=== PATIENT | male | born 1945 | race Caucasian/White ===

== ENCOUNTER → 2017-10-25 09:23 | Outpatient (CLI) | payer OTHER, SELFPAY ==
--- NOTE | 2017-10-25 | DI.ECHO.S_ITS ---
[facility] +---------+ : : [address] : [place] : : : : [id number] : : : : Phone: [phone]+ Echocardiogram Report + + :Name: DEMETRIO JARQUIN Study Date: 10/25/2017 Height: 69 in : :[facility] Weight: 163 lb : : Gender: Male BSA: 1.9 m2 : :: 1945 Age: 71 yrs BP: 138/76 mmHg: :Reason For Study: CAD : :Ordering Physician: Pieter : :Aaliyah Nuñez Performed By: Estelita Troy : :Referring: Cheryl Burgess : + + Interpretation Summary 1) Normal left ventricular thickness, size, wall motion, and systolic function (EF 60-65%). 2) Normal right ventricular size and function. 3) There is mild to moderate mitral regurgitation. 4) The aortic valve is moderately calcified but no significant stenosis or regurgitation noted. 5) Moderately dilated abdominal aorta at 3.8cm. 6) No prior Echo available for comparison. Procedure: A two-dimensional transthoracic echocardiogram with color flow and Doppler was performed. The study quality was technically adequate. There is no prior echocardiogram noted for this patient. The patient was in normal sinus rhythm during the exam. Left Ventricle: The left ventricle is normal in size, wall thickness, and systolic function without any focal wall motion abnormalities. The ejection fraction is estimated to be 60-65%. Grade I diastolic dysfunction. Right Ventricle: The right ventricle grossly appears normal in size with probable normal systolic function. Atria: The left atrium is mildly dilated. Right atrial size is normal. The interatrial septum is intact with no evidence for an atrial septal defect. Mitral Valve: The mitral valve is grossly normal. There is mild to moderate mitral regurgitation. Aortic Valve: The aortic valve is moderately calcified. The calculated aortic valve area is 2.7 cm2. The aortic valve area is 1.8 centimeters squared by planimetry. The peak aortic velocity is 1.3 m/sec. The aortic valve mean gradient is 3 mmHg. Severity ratio is 0.59. No aortic regurgitation is present. Tricuspid Valve: The tricuspid valve leaflets are thin and pliable. There is mild tricuspid regurgitation. The right ventricular systolic pressure is estimated at 27 mmHg assuming a right atrial pressure of 3 mm Hg. Pulmonic Valve: The pulmonic valve is not well visualized. Great Vessels: The aortic root is normal size. The ascending aorta is at the upper limits of normal in size. Moderately dilated abdominal aorta. The IVC is of normal diameter and collapses greater than 50% with a sniff. This suggests a low right atrial pressure of 3 mm Hg. Pericardium/ Pleura There is no pericardial effusion. There is no pleural effusion. MMode/2D Measurements & Calculations LVIDd: 4.2 cm LVOT diam: 2.5 cm LVIDs: 2.7 cm Ao root diam: 3.6 cm FS: 35.9 % Aortic Jxn: 2.8 cm IVSd: 0.93 cm asc Aorta Diam: 3.8 cm LVPWd: 0.98 cm Ao Arch Diam (Prox Trans): 2.7 cm LV carbajal. diameter/BSA (cm/m^2): 2.2 LV sys. diameter/BSA (cm/m^2): 1.4 LA A2 area: 19.1 cm2 RA long axis: 4.6 cm LA A4 area: 17.6 cm2 RA area: 17.8 cm2 LA length (vol): 4.8 cm RA vol: 58.2 ml LA vol: 59.9 ml RA : 30.7 ml/m2 LA vol index: 31.6 ml/m2 IVC diam: 1.3 cm RVDd major: 5.6 cm RVD1 (basal): 3.8 cm RVD2 (mid): 3.2 cm ALISON (plan): 1.8 cm2 Doppler Measurements & Calculations Ao V2 max: 130.9 cm/sec LVOT Max Blair: 74.2 cm/sec Ao V2 mean: 83.0 cm/sec LV V1 max P.2 mmHg Ao max P.9 mmHg LV V1 VTI: 17.2 cm Ao mean P.3 mmHg ALISON(I,D): 2.8 cm2 Ao V2 VTI: 29.4 cm ALISON(V,D): 2.7 cm2 sev ratio: 0.59 ALISON indexed to BSA (cm^2/m^2): 1.5 MV E max blair: 75.8 cm/sec TR max blair: 243.6 cm/sec MV A max blair: 66.6 cm/sec TR max P.7 mmHg MV E/A: 1.1 PA V2 max: 59.9 cm/sec Med Peak E' Blair: 6.2 cm/sec PA V2 mean: 38.0 cm/sec E/E' med: 12.2 PA mean P.71 mmHg Lat Peak E' Blair: 7.3 cm/sec PA Accel Time: 0.13 sec E/E' lat: 10.4 E/e' average: 11.3 MV dec time: 0.18 sec MV P1/2t: 52.9 msec MR ERO: 0.21 cm2 MV P1/2t max blair: 75.5 cm/sec MR flow rate: 107.8 cm3/sec MVA(P12t): 4.2 cm2 MR PISA radius: 0.67 cm Reading Physician:05:05 PM
== END ==
PROVIDERS: Family Provider Internal Medicine; PCP Internal Medicine; Visit Provider Internal Medicine Cardiovascular Disease
DX: I25.10 Atherosclerotic heart disease of native coronary artery without angina pectoris (principal)
CPT/HCPCS: 93306

== ENCOUNTER → 2017-11-18 11:53 | Outpatient (CLI) | payer OTHER, SELFPAY ==
--- NOTE | 2017-11-18 | DI.RAD.S_ITS ---
PROCEDURE: XR CHEST 2V INDICATIONS: COUGH TECHNIQUE: 2 views of the chest were acquired. COMPARISON: [facility], , CHEST 2 VIEW, 08/28/2017, 18:16. FINDINGS: Surgical changes and devices: None. Lungs and pleura: No pleural effusions or pneumothorax. Lungs are clear. Mediastinum: Mediastinal contours are normal. Heart size is normal. Bones and chest wall: No suspicious bony abnormalities. Soft tissues appear unremarkable. IMPRESSION: No acute cardiopulmonary abnormality. Dictated by: Karthikeyan Dominguez M.D. on 11/18/2017 at 12:27 Approved by: Karthikeyan Dominguez M.D. on 11/18/2017 at 12:28
== END ==
PROVIDERS: Family Provider Internal Medicine; PCP Internal Medicine; Visit Provider Internal Medicine
DX: R05 Cough (principal)
CPT/HCPCS: 71046

== ENCOUNTER → 2018-02-05 10:38 | Outpatient (CLI) | payer OTHER, SELFPAY ==
--- NOTE | 2018-02-05 | DI.US.S_ITS ---
PROCEDURE: US CAROTID DOPPLER BI INDICATIONS: BILATERAL CAROTID BRUITS, AAA WITHOUT RUPTURE TECHNIQUE: Color and pulse Doppler interrogation was performed of both carotid systems, with image documentation and velocity measurements. COMPARISON: None. FINDINGS: Stenosis calculations are based on SRU (Society of Radiologists in Ultrasound) criteria. Right side: Brachial blood pressure: Not obtained Common carotid artery peak systolic velocity: 70 cm/sec. Internal carotid artery peak systolic velocity: 93 cm/sec. Internal carotid artery end diastolic velocity: 15 cm/sec. External carotid artery peak systolic velocity: 197 cm/sec. ICA/CCA peak systolic ratio: 1.3. Goodson scale imaging description: Moderate to severe scattered plaque Percent internal carotid artery stenosis: Less than 50%. Vertebral artery: Flow direction is antegrade. Left side: Brachial blood pressure: Not obtained Common carotid artery peak systolic velocity: 66 cm/sec. Internal carotid artery peak systolic velocity: 132 cm/sec. Internal carotid artery end diastolic velocity: 37 cm/sec. External carotid artery peak systolic velocity: 94 cm/sec. ICA/CCA peak systolic ratio: 2.0. Goodson scale imaging description: Moderate to severe scattered plaque Percent internal carotid artery stenosis: 50-69% stenosis. Vertebral artery: Flow direction is antegrade. IMPRESSION: 1. 50-69% left internal carotid artery stenosis. 2. Less than 50% right internal carotid artery stenosis. Dictated by: Hood Allred [facility] Interpreted: Nanette Mckeon MD on 02/05/2018 at 12:02 Approved by: Nanette Mckeon MD, PhD on 02/05/2018 at 12:08
--- NOTE | 2018-02-05 | DI.US.S_ITS ---
PROCEDURE: US RETRO PERITONEAL LIMITED INDICATIONS: BILATERAL CAROTID BRUITS, AAA WITHOUT RUPTURE TECHNIQUE: Real time scanning was performed of the aorta and iliac arteries, with image documentation. COMPARISON: [facility], , L-SPINE 2-3 VIEWS, 06/14/2014, 10:59. FINDINGS: Aorta: Proximal aortic diameter measures 2.4 cm. Mid-aorta measures 1.8 cm. Distal aortic diameter is 3.3 x 4.3 cm. Iliac arteries: Right common iliac artery measures 1.4 cm. Left common iliac artery measures 1.6 cm. IMPRESSION: 3.3 cm distal abdominal aortic aneurysm. 3 year followup ultrasound recommended. Dictated by: Hood Allred [facility] Interpreted: Nanette Mckeon MD on 02/05/2018 at 11:52 Approved by: Nanette Mckeon MD, PhD on 02/05/2018 at 12:04
== END ==
PROVIDERS: Family Provider Internal Medicine; PCP Internal Medicine; Visit Provider Internal Medicine Cardiovascular Disease
DX: I71.4 Abdominal aortic aneurysm, without rupture (principal); I65.23 Occlusion and stenosis of bilateral carotid arteries; R09.89 Other specified symptoms and signs involving the circulatory and respiratory systems
CPT/HCPCS: 76775; 93880

== ENCOUNTER 2018-05-02 12:16 | Observation (INO) | payer OTHER, SELFPAY ==
[2018-05-02] VITALS (12 sets, daily range): BP systolic 126–183; BP diastolic 65–89; PULSE 70–79; RESP 13–21; TEMP 36.7–36.8; O2SAT 96–100; BMI 24.4
--- NOTE | 2018-05-02 12:27 | ED.CHESTPAIN ---
HPI - Chest Pain <LETITIA Beasley - Last Filed: 05/02/18 21:18> General Chief Complaint: Chest Pain Stated Complaint: THINKS HE IS HAVING ANOTHER HEART ATTACK Time Seen by Provider: 05/02/18 12:20 Source: patient Mode of arrival: ambulatory Limitations: no limitations History of Present Illness HPI narrative: 72-year-old male with history of prior MD and a pulmonary embolus that is a former smoker here for complaint of pain into his left shoulder area over the past couple of days. He also reports having some increased tiredness during the same timeframe. He has had some nausea no vomiting. He does report that he has had few episodes of diaphoresis. He denies any shortness of breath. No chest pain at this time. He does report that he has had some pain into the left shoulder that is aggravated with movement at times. He denies any trauma to the area. He does state that last week he moved a generator and that may be the cause of his left shoulder pain. He is concerned that he is having another heart attack as he had a heart attack and August. Any states that he had pain in his left shoulder than as well. MD complaint: other Related Data Home Medications Medication Instructions Recorded Confirmed aspirin 81 mg PO DAILY 05/02/18 05/02/18 atorvastatin 80 mg PO QPM 05/02/18 05/02/18 clopidogrel 75 mg PO DAILY 05/02/18 05/02/18 ezetimibe 10 mg PO QPM 05/02/18 05/02/18 losartan 12.5 mg PO QPM 05/02/18 05/02/18 metoprolol tartrate 25 mg PO BID 05/02/18 05/02/18 nitroglycerin 0.4 mg SUBLINGUAL Q5-15M PRN 05/02/18 05/02/18 Previous Rx's Medication Instructions Recorded famotidine [Pepcid AC] 20 mg PO DAILY #60 tab 05/03/18 sucralfate [Carafate] 1 gram PO QACHS #120 tab 05/03/18 Allergies Allergy/AdvReac Type Severity Reaction Status Date / Time No Known Drug Allergies Allergy Verified 05/02/18 16:12 Review of Systems <LETITIA Beasley - Last Filed: 05/02/18 21:18> Constitutional Denies chills, Denies fever(s), Denies lethargy and Denies weakness Eyes Denies change in vision, Denies eye discharge, Denies irritation and Denies loss of vision ENT Ears, Nose, Mouth, and Throat: Denies change in voice, Denies neck pain and Denies sore throat Cardiovascular Denies chest pain, Denies irregular heart rhythm, Denies lightheadedness, Denies palpitations, Denies dyspnea, Denies dyspnea on exertion and Denies orthopnea Respiratory Denies cough, Denies dyspnea, Denies dyspnea on exertion and Denies wheezing Gastrointestinal Gastrointestinal: Denies abdominal pain, Denies change in bowel habits, Denies diarrhea, Denies nausea and Denies vomiting Genitourinary Denies hematuria, Denies flank pain, Denies urinary incontinence and Denies urinary urgency Musculoskeletal Denies neck pain Comments: Left shoulder pain Integumentary/Breasts Denies pruritus, Denies erythema, Denies rash and Denies wounds Neurologic Denies confusion, Denies loss of vision and Denies weakness Psychiatric Denies anxiety, Denies confusion, Denies depression, Denies homicidal ideation and Denies suicidal ideation Endocrine Denies palpitations Hematologic/Lymphatic Denies easy bruising Allergic/Immunologic Denies wheezing Exam <LETITIA Beasley - Last Filed: 05/02/18 21:18> Initial Vital Signs Initial Vital Signs: Vital Signs Temperature 98.0 F 05/02/18 12:24 Pulse Rate 77 05/02/18 12:24 Respiratory Rate 17 05/02/18 12:24 Blood Pressure 183/89 H 05/02/18 12:24 Pulse Oximetry 98 05/02/18 12:24 Const General: cooperative and well developed Nutritional Appearance: well nourished Orientation: alert, awake, oriented x3 and not confused [facility] Mouth: oral mucosae normal and moist mucous membranes Eyes Conjunctivae: conjunctivae normal Sclera: sclerae normal Pupils: PERRL EOM: EOM intact bilaterally Chest Chest: normal inspection of the chest Resp Effort & Inspection: normal respiratory effort, able to speak in complete sentences, no respiratory distress and no use of accessory muscles Auscultation: clear to auscultation bilaterally, no rales, no rhonchi and no wheezes Cardio Rate: regular rate Rhythm: regular rhythm Heart Sounds: no click, no gallops, no murmurs and no rubs Pulses: normal peripheral pulses Skin General: no rashes or lesions noted, No jaundice and No petechiae Neuro General: alert, oriented x3, gait normal and no focal motor deficits Speech: speech normal <Linda Sam DO - Last Filed: 05/05/18 07:22> Initial Vital Signs Initial Vital Signs: Vital Signs Temperature 98.0 F 05/02/18 12:24 Pulse Rate 77 05/02/18 12:24 Respiratory Rate 17 05/02/18 12:24 Blood Pressure 183/89 H 05/02/18 12:24 Pulse Oximetry 98 05/02/18 12:24 Scores <LETITIA Beasley - Last Filed: 05/02/18 21:18> HEART Score Heart Score history: Slightly Suspicious Heart Score EKG: Normal Heart Score Age: > or = 65 years old Heart Score risk factors: > 3 risk factors or hx of atherosclerotic disease Heart Score troponin: < or = to normal limit Heart Score Total: 4 PERC Score Age greater than or equal to 50 years: Yes Heart rate greater than or equal to 100 bpm: No Room Air O2 Sat less than 95%: No Unilateral leg swelling: No Recent trauma or surgery: No Hemoptysis: No Prior PE or DVT: Yes Hormone Use: No Total PERC Score: 2 Course <LETITIA Beasley - Last Filed: 05/02/18 21:18> Orders Ordered: Discontinued Medications Acetaminophen (Tylenol) 650 mg PO Q6HR PRN PRN Reason: As Needed for Fever/Mild Pain Aspirin (Aspirin Ec) 81 mg PO DAILY [facility] Last Admin: 05/03/18 09:07 Dose: 81 mg Atorvastatin Calcium (Lipitor) 80 mg PO QPM [facility] Last Admin: 05/02/18 17:48 Dose: 80 mg Calcium Carbonate (Tums) 1,000 mg PO Q4HR PRN PRN Reason: Dyspepsia Clopidogrel Bisulfate (Plavix) 75 mg PO DAILY [facility] Last Admin: 05/03/18 09:07 Dose: 75 mg Ezetimibe (Zetia) 10 mg PO QPM [facility] Last Admin: 05/02/18 17:48 Dose: 10 mg Enoxaparin Sodium (Lovenox) 40 mg SUBCUT DAILY [facility] Last Admin: 05/03/18 09:10 Dose: Not Given Losartan Potassium (Cozaar) 12.5 mg PO QPM [facility] Last Admin: 05/02/18 17:48 Dose: 12.5 mg Metoprolol Tartrate (Lopressor) 25 mg PO BID [facility] Last Admin: 05/03/18 09:07 Dose: 25 mg Admin: 05/02/18 20:22 Dose: 25 mg Morphine Sulfate (Morphine) 2 mg IV Q4HR PRN PRN Reason: Pain, Moderate (4-6) Nitroglycerin (Nitrostat) 0.3 mg SL [id number] PRN PRN Reason: CHEST PAIN Ondansetron HCl (Zofran) 4 mg IV Q8HR PRN PRN Reason: Nausea And Vomiting Pantoprazole Sodium (Protonix) 20 mg PO 0600 [facility] Last Admin: 05/03/18 05:23 Dose: 20 mg Polyethylene Glycol (Miralax) 34 gm PO NOW ONE Stop: 05/02/18 18:39 Last Admin: 05/02/18 20:22 Dose: 34 gm Polyethylene Glycol (Miralax) 17 gm PO DAILY [facility] Last Admin: 05/03/18 09:07 Dose: 17 gm Sennosides (Senna) 17.2 mg PO BEDTIME [facility] Last Admin: 05/02/18 20:22 Dose: 17.2 mg Vital Signs - 8 hr 05/02/18 13:48 05/02/18 14:00 05/02/18 14:57 Temperature Pulse Rate 71 73 70 Respiratory Rate 18 21 15 Blood Pressure Blood Pressure [Left Arm] 160/78 H 135/70 136/71 Pulse Oximetry 97 99 97 05/02/18 15:02 05/02/18 15:43 05/02/18 17:06 Temperature 98.1 F Pulse Rate 79 74 75 Respiratory Rate 13 20 18 Blood Pressure 150/89 H Blood Pressure [Left Arm] 128/65 126/70 Pulse Oximetry 100 100 98 05/02/18 17:29 05/02/18 17:48 Temperature Pulse Rate 75 Respiratory Rate Blood Pressure 150/89 H Blood Pressure [Left Arm] Pulse Oximetry 98 <Linda Sam DO - Last Filed: 05/05/18 07:22> Orders Ordered: Discontinued Medications Acetaminophen (Tylenol) 650 mg PO Q6HR PRN PRN Reason: As Needed for Fever/Mild Pain Aspirin (Aspirin Ec) 81 mg PO DAILY [facility] Last Admin: 05/03/18 09:07 Dose: 81 mg Atorvastatin Calcium (Lipitor) 80 mg PO QPM [facility] Last Admin: 05/02/18 17:48 Dose: 80 mg Calcium Carbonate (Tums) 1,000 mg PO Q4HR PRN PRN Reason: Dyspepsia Clopidogrel Bisulfate (Plavix) 75 mg PO DAILY [facility] Last Admin: 05/03/18 09:07 Dose: 75 mg Ezetimibe (Zetia) 10 mg PO QPM [facility] Last Admin: 05/02/18 17:48 Dose: 10 mg Enoxaparin Sodium (Lovenox) 40 mg SUBCUT DAILY [facility] Last Admin: 05/03/18 09:10 Dose: Not Given Losartan Potassium (Cozaar) 12.5 mg PO QPM [facility] Last Admin: 05/02/18 17:48 Dose: 12.5 mg Metoprolol Tartrate (Lopressor) 25 mg PO BID [facility] Last Admin: 05/03/18 09:07 Dose: 25 mg Admin: 05/02/18 20:22 Dose: 25 mg Morphine Sulfate (Morphine) 2 mg IV Q4HR PRN PRN Reason: Pain, Moderate (4-6) Nitroglycerin (Nitrostat) 0.3 mg SL [id number] PRN PRN Reason: CHEST PAIN Ondansetron HCl (Zofran) 4 mg IV Q8HR PRN PRN Reason: Nausea And Vomiting Pantoprazole Sodium (Protonix) 20 mg PO 0600 [facility] Last Admin: 05/03/18 05:23 Dose: 20 mg Polyethylene Glycol (Miralax) 34 gm PO NOW ONE Stop: 05/02/18 18:39 Last Admin: 05/02/18 20:22 Dose: 34 gm Polyethylene Glycol (Miralax) 17 gm PO DAILY [facility] Last Admin: 05/03/18 09:07 Dose: 17 gm Sennosides (Senna) 17.2 mg PO BEDTIME [facility] Last Admin: 05/02/18 20:22 Dose: 17.2 mg Vital Signs - 8 hr 05/02/18 13:48 05/02/18 14:00 05/02/18 14:57 Temperature Pulse Rate 71 73 70 Respiratory Rate 18 21 15 Blood Pressure Blood Pressure [Left Arm] 160/78 H 135/70 136/71 Pulse Oximetry 97 99 97 05/02/18 15:02 05/02/18 15:43 12/28/18 17:06 Temperature 98.1 F Pulse Rate 79 74 75 Respiratory Rate 13 20 18 Blood Pressure 150/89 H Blood Pressure [Left Arm] 128/65 126/70 Pulse Oximetry 100 100 98 05/02/18 17:29 05/02/18 17:48 Temperature Pulse Rate 75 Respiratory Rate Blood Pressure 150/89 H Blood Pressure [Left Arm] Pulse Oximetry 98 MDM - Chest Pain <LETITIA Beasley - Last Filed: 05/02/18 21:18> Lab Data Result diagrams: 05/02/18 12:25 05/03/18 05:52 Lab Results 05/02/18 05/02/18 05/02/18 Range/Units 12:25 12:25 12:25 WBC 7.6 (4.5-11.0) X10^3/uL RBC 4.37 L (4.5-5.9) X10^6/uL Hgb 14.7 (13.5-17.5) g/dL Hct 42.2 (41-53) % MCV 96.7 (80-100) fL MCH 33.6 (26-34) PG MCHC 34.7 (30-36) % RDW 12.4 (11.6-14.8) % Plt Count 204 (150-400) X10^3/uL Neut % (Auto) 59.4 (50-75) % Lymph % (Auto) 28.6 (25-40) % [place] % (Auto) 8.1 (3-14) % Eos % (Auto) 3.0 (2-4) % Baso % (Auto) 0.9 (0-2) % Neut # (Auto) 4500 (7561-9853) /uL D-Dimer 678 H (<230) ng/mL Sodium 141 (137-145) mmol/L Potassium 4.9 (3.4-5.1) mmol/L Chloride 101 (98-107) mmol/L Carbon Dioxide 27 (22-32) mmol/L BUN 13 (9-20) mg/dL Creatinine 0.80 (0.66-1.25) mg/dL Estimated GFR > 60.0 (>60) mL/min BUN/Creatinine Ratio 16.3 (6-22) Glucose 107 (80-110) mg/dL Calcium 9.6 (8.4-10.2) mg/dL Total Bilirubin 0.7 (0.2-1.3) mg/dL AST 54 (17-59) IU/L ALT 40 (21-72) IU/L Alkaline Phosphatase 61 (38-126) U/L Total Creatine Kinase 518 H (55-170) U/L CK-MB (CK-2) 15.30 H (<2.37) ng/mL CK-MB (CK-2) Rel Index 3.0 (1.5-5.0) % Troponin I < 0.012 (0.01-0.034) ng/mL Total Protein 7.7 (6.3-8.2) g/dL Albumin 4.6 (3.5-5.0) g/dL Globulin 3.1 (1.7-4.1) g/dL Albumin/Globulin Ratio 1.5 (1.0-2.8) Triglycerides 141 (35-150) mg/dL Cholesterol 191 (140-199) mg/dL LDL Cholesterol, Calc 91 (<100) mg/dL HDL Cholesterol 72 H (40-60) mg/dL Lipase 150 (23-300) U/L 05/03/18 Range/Units 05:52 WBC (4.5-11.0) X10^3/uL RBC (4.5-5.9) X10^6/uL Hgb (13.5-17.5) g/dL Hct (41-53) % MCV (80-100) fL MCH (26-34) PG MCHC (30-36) % RDW (11.6-14.8) % Plt Count (150-400) X10^3/uL Neut % (Auto) (50-75) % Lymph % (Auto) (25-40) % Carolina % (Auto) (3-14) % Eos % (Auto) (2-4) % Baso % (Auto) (0-2) % Neut # (Auto) (8124-9415) /uL D-Dimer (<230) ng/mL Sodium 138 (137-145) mmol/L Potassium 3.9 (3.4-5.1) mmol/L Chloride 102 (98-107) mmol/L Carbon Dioxide 26 (22-32) mmol/L BUN 13 (9-20) mg/dL Creatinine 0.80 (0.66-1.25) mg/dL Estimated GFR > 60.0 (>60) mL/min BUN/Creatinine Ratio 16.3 (6-22) Glucose 104 (80-110) mg/dL Calcium 9.0 (8.4-10.2) mg/dL Total Bilirubin (0.2-1.3) mg/dL AST (17-59) IU/L ALT (21-72) IU/L Alkaline Phosphatase (38-126) U/L Total Creatine Kinase 490 H (55-170) U/L CK-MB (CK-2) 10.50 H (<2.37) ng/mL CK-MB (CK-2) Rel Index 2.1 (1.5-5.0) % Troponin I < 0.012 (0.01-0.034) ng/mL Total Protein (6.3-8.2) g/dL Albumin (3.5-5.0) g/dL Globulin (1.7-4.1) g/dL Albumin/Globulin Ratio (1.0-2.8) Triglycerides (35-150) mg/dL Cholesterol (140-199) mg/dL LDL Cholesterol, Calc (<100) mg/dL HDL Cholesterol (40-60) mg/dL Lipase (23-300) U/L Imaging Data Chest x-ray: Radiologist's impression: [address] [address] XRay Report Signed Patient: Elan Borges MR#: [id number] : 1945 Acct:[id number] Age/Sex: 72 / M Date of Service: 05/02/18 Loc: ED Accession Number: [id number] Procedure: XR chest 1V Ordering Provider: Conor Ayala PROCEDURE: XR CHEST 1V INDICATIONS: chest pain TECHNIQUE: One view of the chest was acquired. COMPARISON: [facility], CR, XR CHEST 2V, 11/18/2017, 11:59. FINDINGS: Surgical changes and devices: None. Lungs and pleura: No pleural effusions or pneumothorax. Lungs are clear. Mediastinum: Mediastinal contours appear normal. Heart size is normal. Bones and chest wall: No suspicious bony lesions. Overlying soft tissues appear unremarkable. IMPRESSION: No acute pulmonary process. Dictated by: Jennfifer Cardoso M.D. on 05/02/2018 at 13:04 Approved by: Jenniffer Cardoso M.D. on 05/02/2018 at 13:06 ECG Data Interpretation: EKG shows normal sinus rhythm with no ST elevation or depression. No ectopy. Ventricular rate is 76. Pr interval 160. QRS duration of 96. QTC 389. MDM Narrative Medical decision making narrative: EKG today shows normal sinus rhythm and no ST elevation or depression. No ectopy. Cardiac enzymes show elevated CK and CK-MB with normal CK-MB ratio and normal troponin. Chest x-ray was obtained. D-dimer was obtained and was 678 which is close to age adjusted D-dimer however patient has history of prior PE so elected to have a PE study conducted and was negative for pulmonary embolus. Discussed case with Cardiology Dr. Velazquez who recommended admission for observation and serial enzymes discussed case with Dr. Gomez hospitalist who accepted patient. Patient is admitted to inpatient services <Linda Sam, - Last Filed: 05/05/18 07:22> Lab Data Lab Results 05/02/18 05/02/18 05/02/18 Range/Units 12:25 12:25 12:25 WBC 7.6 (4.5-11.0) X10^3/uL RBC 4.37 L (4.5-5.9) X10^6/uL Hgb 14.7 (13.5-17.5) g/dL Hct 42.2 (41-53) % MCV 96.7 (80-100) fL MCH 33.6 (26-34) PG MCHC 34.7 (30-36) % RDW 12.4 (11.6-14.8) % Plt Count 204 (150-400) X10^3/uL Neut % (Auto) 59.4 (50-75) % Lymph % (Auto) 28.6 (25-40) % Carolina % (Auto) 8.1 (3-14) % Eos % (Auto) 3.0 (2-4) % Baso % (Auto) 0.9 (0-2) % Neut # (Auto) 4500 (9451-2856) /uL D-Dimer 678 H (<230) ng/mL Sodium 141 (137-145) mmol/L Potassium 4.9 (3.4-5.1) mmol/L Chloride 101 (98-107) mmol/L Carbon Dioxide 27 (22-32) mmol/L BUN 13 (9-20) mg/dL Creatinine 0.80 (0.66-1.25) mg/dL Estimated GFR > 60.0 (>60) mL/min BUN/Creatinine Ratio 16.3 (6-22) Glucose 107 (80-110) mg/dL Calcium 9.6 (8.4-10.2) mg/dL Total Bilirubin 0.7 (0.2-1.3) mg/dL AST 54 (17-59) IU/L ALT 40 (21-72) IU/L Alkaline Phosphatase 61 (38-126) U/L Total Creatine Kinase 518 H (55-170) U/L CK-MB (CK-2) 15.30 H (<2.37) ng/mL CK-MB (CK-2) Rel Index 3.0 (1.5-5.0) % Troponin I < 0.012 (0.01-0.034) ng/mL Total Protein 7.7 (6.3-8.2) g/dL Albumin 4.6 (3.5-5.0) g/dL Globulin 3.1 (1.7-4.1) g/dL Albumin/Globulin Ratio 1.5 (1.0-2.8) Triglycerides 141 (35-150) mg/dL Cholesterol 191 (140-199) mg/dL LDL Cholesterol, Calc 91 (<100) mg/dL HDL Cholesterol 72 H (40-60) mg/dL Lipase 150 (23-300) U/L 05/03/18 Range/Units 05:52 WBC (4.5-11.0) X10^3/uL RBC (4.5-5.9) X10^6/uL Hgb (13.5-17.5) g/dL Hct (41-53) % MCV (80-100) fL MCH (26-34) PG MCHC (30-36) % RDW (11.6-14.8) % Plt Count (150-400) X10^3/uL Neut % (Auto) (50-75) % Lymph % (Auto) (25-40) % Carolina % (Auto) (3-14) % Eos % (Auto) (2-4) % Baso % (Auto) (0-2) % Neut # (Auto) (3179-2375) /uL D-Dimer (<230) ng/mL Sodium 138 (137-145) mmol/L Potassium 3.9 (3.4-5.1) mmol/L Chloride 102 (98-107) mmol/L Carbon Dioxide 26 (22-32) mmol/L BUN 13 (9-20) mg/dL Creatinine 0.80 (0.66-1.25) mg/dL Estimated GFR > 60.0 (>60) mL/min BUN/Creatinine Ratio 16.3 (6-22) Glucose 104 (80-110) mg/dL Calcium 9.0 (8.4-10.2) mg/dL Total Bilirubin (0.2-1.3) mg/dL AST (17-59) IU/L ALT (21-72) IU/L Alkaline Phosphatase (38-126) U/L Total Creatine Kinase 490 H (55-170) U/L CK-MB (CK-2) 10.50 H (<2.37) ng/mL CK-MB (CK-2) Rel Index 2.1 (1.5-5.0) % Troponin I < 0.012 (0.01-0.034) ng/mL Total Protein (6.3-8.2) g/dL Albumin (3.5-5.0) g/dL Globulin (1.7-4.1) g/dL Albumin/Globulin Ratio (1.0-2.8) Triglycerides (35-150) mg/dL Cholesterol (140-199) mg/dL LDL Cholesterol, Calc (<100) mg/dL HDL Cholesterol (40-60) mg/dL Lipase (23-300) U/L Discharge Plan Departure Patient Disposition: Admitted As Inpatient Clinical Impression: Acute pain of left shoulder Discharge Date/Time: 05/02/18 16:44 Interventions: ED Discharge Assessment Last Done: 05/02/18 16:38 Admit Date/Time: 05/02/18 16:09 Admit Provider: Yennifer Mckeon <Linda Sam DO - Last Filed: 05/05/18 07:22> Cosign ED Attending Cosdominickature Attestation: I was immediately available in the department for consultation, case was discussed, labs reviewed and HPI. Plan for observation after consultation with cardiology. This documentation has been reviewed and I agree with assessment and plan. Supervised by Linda Sam, DO
[2018-05-02 12:42] LABS: Add Manual Diff / Slide Review NO; Basophils Percent Auto 0.9 % (0-2); Hematocrit 42.2 % (41-53); Hemoglobin 14.7 g/dL (13.5-17.5); Lymphocytes Percent Auto 28.6 % (25-40); Mean Corpuscular HGB Conc 34.7 % (30-36); Mean Corpuscular Hemoglobin 33.6 PG (26-34); Mean Corpuscular Volume 96.7 fL (80-100); Monocytes Percent Auto 8.1 % (3-14); Neutrophils Absolute Auto 4500 /uL (1500-7000); Neutrophils Percent Auto 59.4 % (50-75); Platelet Count 204 X10^3/uL (150-400); Red Blood Cell Count 4.37 X10^6/uL (4.5-5.9); Red Cell Distribution Width 12.4 % (11.6-14.8); White Blood Cell Count 7.6 X10^3/uL (4.5-11.0)
[2018-05-02 12:45] LABS: D Dimer 678 ng/mL (<230)
[2018-05-02 12:47] LABS: BUN Creatinine Ratio 16.3 (6-22); Blood Urea Nitrogen 13 mg/dL (9-20); Carbon Dioxide 27 mmol/L (22-32); Chloride 101 mmol/L (98-107); Creatine Kinase 518 U/L (55-170); Potassium 4.9 mmol/L (3.4-5.1); Sodium 141 mmol/L (137-145)
[2018-05-02 12:48] LABS: Alanine Aminotransferase 40 IU/L (21-72); Albumin 4.6 g/dL (3.5-5.0); Albumin Globulin Ratio 1.5 (1.0-2.8); Alkaline Phosphatase 61 U/L (38-126); Aspartate Aminotransferase 54 IU/L (17-59); Bilirubin Total 0.7 mg/dL (0.2-1.3); Calcium 9.6 mg/dL (8.4-10.2); Estimated Glomerular Filt Rate > 60.0 mL/min (>60); Globulin 3.1 g/dL (1.7-4.1); Glucose 107 mg/dL (80-110); Lipase 150 U/L (23-300); Total Protein 7.7 g/dL (6.3-8.2)
[2018-05-02 12:59] LABS: Troponin I < 0.012 ng/mL (0.01-0.034)
[2018-05-02 13:03] LABS: HEMOLYSIS < 15 (0-50)
--- NOTE | 2018-05-02 13:09 | DI.CT.S_ITS ---
PROCEDURE: CT ANGIO CHEST PE PROTOCOL INDICATIONS: Chest pain hx of pe in past TECHNIQUE: After the administration of intravenous contrast, 2 mm thick sections acquired from the pulmonary apices to the posterior costophrenic angles. 3-dimensional maximum intensity projection (MIP) coronal and sagittal reformats were then acquired through the thorax. For radiation dose reduction, the following was used: automated exposure control, adjustment of mA and/or kV according to patient size. COMPARISON: [facility], CT, PE STUDY (CTA CHEST), 12/06/2014, 15:13. [facility], CT, PE STUDY (CTA CHEST), 08/28/2017, 18:57. FINDINGS: Image quality: Excellent. Pulmonary arteries: Pulmonary arteries are normal in size, and demonstrate no new intraluminal filling defects to suggest interval development of central pulmonary embolism. And earlier CT scan of the chest in December 2014 and identified a significant obstructive pulmonary embolus within the right medial bibasilar segmental pulmonary artery, in addition to elsewhere. Recanalization of that embolus appears to have developed with only a slight residual in the same area, as a thin band of intraluminal radiodensity on 08/28/17 CT pulmonary angiogram. This same thin weblike residual structure can again be seen unchanged over time, best identified centered on series 4 image 82. This extends inferiorly for 2 slices, as was previously the case, and no new pulmonary embolus has developed. Lungs and pleura: Lungs are clear considering reduced inspiratory volume. No pleural effusions or pneumothorax. Central and peripheral airways are patent. Mediastinum: Heart size is normal, without pericardial effusion. No mediastinal or hilar adenopathy. Thoracic aorta is normal in caliber and enhancement. Esophagus is normal in caliber, without hiatal hernia. Bones and chest wall: No suspicious bony lesions. Ribs and thoracic spine appear intact throughout. Thyroid gland appears normal where well visualized. No axillary or supraclavicular adenopathy. Abdomen: Visualized upper abdominal solid organs appear normal in the early arterial phase of enhancement. IMPRESSION: No new pulmonary embolus found. There is stable appearance of a thin weblike band of nonocclusive radiodensity within the medial bibasilar posterior segmental pulmonary artery at the right lung base, identical to the appearance from 08/28/17. This represents an area of prior large occlusive pulmonary embolus seen in December of 2014. Note is again made of a small presumed cyst within the left medial hepatic segment, present on prior CT scanning in December of 2014. No followup recommended. Dictated by: Dave Durham M.D. on 05/02/2018 at 13:48 Approved by: Dave Durham M.D. on 05/02/2018 at 13:59
--- NOTE | 2018-05-02 13:16 | PC.NURSE ---
Pt reports R side NSTEMI in 08/2017 with two stents. Recently moved a generator, has been having R shoulder, deep inside discomfort, and worse with movement. Also c/o lots of congestion, productive cough recently. Has been having chills and sweaty with warm skin temperature.
--- NOTE | 2018-05-02 13:51 | ED_ITS ---
HPI - Chest Pain <LETITIA Beasley - Last Filed: 05/02/18 21:18> General Chief Complaint: Chest Pain Stated Complaint: THINKS HE IS HAVING ANOTHER HEART ATTACK Time Seen by Provider: 05/02/18 12:20 Source: patient Mode of arrival: ambulatory Limitations: no limitations History of Present Illness HPI narrative: 72-year-old male with history of prior VT and a pulmonary embolus that is a former smoker here for complaint of pain into his left shoulder area over the past couple of days. He also reports having some increased tiredness during the same timeframe. He has had some nausea no vomiting. He does report that he has had few episodes of diaphoresis. He denies any shortness of breath. No chest pain at this time. He does report that he has had some pain into the left shoulder that is aggravated with movement at times. He denies any trauma to the area. He does state that last week he moved a generator and that may be the cause of his left shoulder pain. He is concerned that he is having another heart attack as he had a heart attack and August. Any states that he had pain in his left shoulder than as well. MD complaint: other Related Data Home Medications Medication Instructions Recorded Confirmed aspirin 81 mg PO DAILY 05/02/18 05/02/18 atorvastatin 80 mg PO QPM 05/02/18 05/02/18 clopidogrel 75 mg PO DAILY 05/02/18 05/02/18 ezetimibe 10 mg PO QPM 05/02/18 05/02/18 losartan 12.5 mg PO QPM 05/02/18 05/02/18 metoprolol tartrate 25 mg PO BID 05/02/18 05/02/18 nitroglycerin 0.4 mg SUBLINGUAL Q5-15M PRN 05/02/18 05/02/18 Previous Rx's Medication Instructions Recorded famotidine [Pepcid AC] 20 mg PO DAILY #60 tab 05/03/18 sucralfate [Carafate] 1 gram PO QACHS #120 tab 05/03/18 Allergies Allergy/AdvReac Type Severity Reaction Status Date / Time No Known Drug Allergies Allergy Verified 05/02/18 16:12 Review of Systems <LETITIA Beasley - Last Filed: 05/02/18 21:18> Constitutional Denies chills, Denies fever(s), Denies lethargy and Denies weakness Eyes Denies change in vision, Denies eye discharge, Denies irritation and Denies loss of vision ENT Ears, Nose, Mouth, and Throat: Denies change in voice, Denies neck pain and Denies sore throat Cardiovascular Denies chest pain, Denies irregular heart rhythm, Denies lightheadedness, Denies palpitations, Denies dyspnea, Denies dyspnea on exertion and Denies orthopnea Respiratory Denies cough, Denies dyspnea, Denies dyspnea on exertion and Denies wheezing Gastrointestinal Gastrointestinal: Denies abdominal pain, Denies change in bowel habits, Denies diarrhea, Denies nausea and Denies vomiting Genitourinary Denies hematuria, Denies flank pain, Denies urinary incontinence and Denies urinary urgency Musculoskeletal Denies neck pain Comments: Left shoulder pain Integumentary/Breasts Denies pruritus, Denies erythema, Denies rash and Denies wounds Neurologic Denies confusion, Denies loss of vision and Denies weakness Psychiatric Denies anxiety, Denies confusion, Denies depression, Denies homicidal ideation and Denies suicidal ideation Endocrine Denies palpitations Hematologic/Lymphatic Denies easy bruising Allergic/Immunologic Denies wheezing Exam <LETITIA Beasley - Last Filed: 05/02/18 21:18> Initial Vital Signs Initial Vital Signs: Vital Signs Temperature 98.0 F 05/02/18 12:24 Pulse Rate 77 05/02/18 12:24 Respiratory Rate 17 05/02/18 12:24 Blood Pressure 183/89 H 05/02/18 12:24 Pulse Oximetry 98 05/02/18 12:24 Const General: cooperative and well developed Nutritional Appearance: well nourished Orientation: alert, awake, oriented x3 and not confused [facility] Mouth: oral mucosae normal and moist mucous membranes Eyes Conjunctivae: conjunctivae normal Sclera: sclerae normal Pupils: PERRL EOM: EOM intact bilaterally Chest Chest: normal inspection of the chest Resp Effort & Inspection: normal respiratory effort, able to speak in complete sentences, no respiratory distress and no use of accessory muscles Auscultation: clear to auscultation bilaterally, no rales, no rhonchi and no wheezes Cardio Rate: regular rate Rhythm: regular rhythm Heart Sounds: no click, no gallops, no murmurs and no rubs Pulses: normal peripheral pulses Skin General: no rashes or lesions noted, No jaundice and No petechiae Neuro General: alert, oriented x3, gait normal and no focal motor deficits Speech: speech normal <Linda Sam DO - Last Filed: 05/05/18 07:22> Initial Vital Signs Initial Vital Signs: Vital Signs Temperature 98.0 F 05/02/18 12:24 Pulse Rate 77 05/02/18 12:24 Respiratory Rate 17 05/02/18 12:24 Blood Pressure 183/89 H 05/02/18 12:24 Pulse Oximetry 98 05/02/18 12:24 Scores <LETITIA Beasley - Last Filed: 05/02/18 21:18> HEART Score Heart Score history: Slightly Suspicious Heart Score EKG: Normal Heart Score Age: > or = 65 years old Heart Score risk factors: > 3 risk factors or hx of atherosclerotic disease Heart Score troponin: < or = to normal limit Heart Score Total: 4 PERC Score Age greater than or equal to 50 years: Yes Heart rate greater than or equal to 100 bpm: No Room Air O2 Sat less than 95%: No Unilateral leg swelling: No Recent trauma or surgery: No Hemoptysis: No Prior PE or DVT: Yes Hormone Use: No Total PERC Score: 2 Course <LETITIA Beasley - Last Filed: 05/02/18 21:18> Orders Ordered: Discontinued Medications Acetaminophen (Tylenol) 650 mg PO Q6HR PRN PRN Reason: As Needed for Fever/Mild Pain Aspirin (Aspirin Ec) 81 mg PO DAILY [facility] Last Admin: 05/03/18 09:07 Dose: 81 mg Atorvastatin Calcium (Lipitor) 80 mg PO QPM [facility] Last Admin: 05/02/18 17:48 Dose: 80 mg Calcium Carbonate (Tums) 1,000 mg PO Q4HR PRN PRN Reason: Dyspepsia Clopidogrel Bisulfate (Plavix) 75 mg PO DAILY [facility] Last Admin: 05/03/18 09:07 Dose: 75 mg Ezetimibe (Zetia) 10 mg PO QPM [facility] Last Admin: 05/02/18 17:48 Dose: 10 mg Enoxaparin Sodium (Lovenox) 40 mg SUBCUT DAILY [facility] Last Admin: 05/03/18 09:10 Dose: Not Given Losartan Potassium (Cozaar) 12.5 mg PO QPM [facility] Last Admin: 05/02/18 17:48 Dose: 12.5 mg Metoprolol Tartrate (Lopressor) 25 mg PO BID [facility] Last Admin: 05/03/18 09:07 Dose: 25 mg Admin: 05/02/18 20:22 Dose: 25 mg Morphine Sulfate (Morphine) 2 mg IV Q4HR PRN PRN Reason: Pain, Moderate (4-6) Nitroglycerin (Nitrostat) 0.3 mg SL [id number] PRN PRN Reason: CHEST PAIN Ondansetron HCl (Zofran) 4 mg IV Q8HR PRN PRN Reason: Nausea And Vomiting Pantoprazole Sodium (Protonix) 20 mg PO 0600 [facility] Last Admin: 05/03/18 05:23 Dose: 20 mg Polyethylene Glycol (Miralax) 34 gm PO NOW ONE Stop: 05/02/18 18:39 Last Admin: 05/02/18 20:22 Dose: 34 gm Polyethylene Glycol (Miralax) 17 gm PO DAILY [facility] Last Admin: 05/03/18 09:07 Dose: 17 gm Sennosides (Senna) 17.2 mg PO BEDTIME [facility] Last Admin: 05/02/18 20:22 Dose: 17.2 mg Vital Signs - 8 hr 05/02/18 13:48 05/02/18 14:00 05/02/18 14:57 Temperature Pulse Rate 71 73 70 Respiratory Rate 18 21 15 Blood Pressure Blood Pressure [Left Arm] 160/78 H 135/70 136/71 Pulse Oximetry 97 99 97 05/02/18 15:02 05/02/18 15:43 05/02/18 17:06 Temperature 98.1 F Pulse Rate 79 74 75 Respiratory Rate 13 20 18 Blood Pressure 150/89 H Blood Pressure [Left Arm] 128/65 126/70 Pulse Oximetry 100 100 98 05/02/18 17:29 05/02/18 17:48 Temperature Pulse Rate 75 Respiratory Rate Blood Pressure 150/89 H Blood Pressure [Left Arm] Pulse Oximetry 98 <Linda Sam DO - Last Filed: 05/05/18 07:22> Orders Ordered: Discontinued Medications Acetaminophen (Tylenol) 650 mg PO Q6HR PRN PRN Reason: As Needed for Fever/Mild Pain Aspirin (Aspirin Ec) 81 mg PO DAILY [facility] Last Admin: 05/03/18 09:07 Dose: 81 mg Atorvastatin Calcium (Lipitor) 80 mg PO QPM [facility] Last Admin: 05/02/18 17:48 Dose: 80 mg Calcium Carbonate (Tums) 1,000 mg PO Q4HR PRN PRN Reason: Dyspepsia Clopidogrel Bisulfate (Plavix) 75 mg PO DAILY [facility] Last Admin: 05/03/18 09:07 Dose: 75 mg Ezetimibe (Zetia) 10 mg PO QPM [facility] Last Admin: 05/02/18 17:48 Dose: 10 mg Enoxaparin Sodium (Lovenox) 40 mg SUBCUT DAILY [facility] Last Admin: 05/03/18 09:10 Dose: Not Given Losartan Potassium (Cozaar) 12.5 mg PO QPM [facility] Last Admin: 05/02/18 17:48 Dose: 12.5 mg Metoprolol Tartrate (Lopressor) 25 mg PO BID [facility] Last Admin: 05/03/18 09:07 Dose: 25 mg Admin: 05/02/18 20:22 Dose: 25 mg Morphine Sulfate (Morphine) 2 mg IV Q4HR PRN PRN Reason: Pain, Moderate (4-6) Nitroglycerin (Nitrostat) 0.3 mg SL [id number] PRN PRN Reason: CHEST PAIN Ondansetron HCl (Zofran) 4 mg IV Q8HR PRN PRN Reason: Nausea And Vomiting Pantoprazole Sodium (Protonix) 20 mg PO 0600 [facility] Last Admin: 05/03/18 05:23 Dose: 20 mg Polyethylene Glycol (Miralax) 34 gm PO NOW ONE Stop: 05/02/18 18:39 Last Admin: 05/02/18 20:22 Dose: 34 gm Polyethylene Glycol (Miralax) 17 gm PO DAILY [facility] Last Admin: 05/03/18 09:07 Dose: 17 gm Sennosides (Senna) 17.2 mg PO BEDTIME [facility] Last Admin: 05/02/18 20:22 Dose: 17.2 mg Vital Signs - 8 hr 05/02/18 13:48 05/02/18 14:00 05/02/18 14:57 Temperature Pulse Rate 71 73 70 Respiratory Rate 18 21 15 Blood Pressure Blood Pressure [Left Arm] 160/78 H 135/70 136/71 Pulse Oximetry 97 99 97 05/02/18 15:02 05/02/18 15:43 12/28/18 17:06 Temperature 98.1 F Pulse Rate 79 74 75 Respiratory Rate 13 20 18 Blood Pressure 150/89 H Blood Pressure [Left Arm] 128/65 126/70 Pulse Oximetry 100 100 98 05/02/18 17:29 05/02/18 17:48 Temperature Pulse Rate 75 Respiratory Rate Blood Pressure 150/89 H Blood Pressure [Left Arm] Pulse Oximetry 98 MDM - Chest Pain <LETITIA Beasley - Last Filed: 05/02/18 21:18> Lab Data Result diagrams: 05/02/18 12:25 05/03/18 05:52 Lab Results 05/02/18 05/02/18 05/02/18 Range/Units 12:25 12:25 12:25 WBC 7.6 (4.5-11.0) X10^3/uL RBC 4.37 L (4.5-5.9) X10^6/uL Hgb 14.7 (13.5-17.5) g/dL Hct 42.2 (41-53) % MCV 96.7 (80-100) fL MCH 33.6 (26-34) PG MCHC 34.7 (30-36) % RDW 12.4 (11.6-14.8) % Plt Count 204 (150-400) X10^3/uL Neut % (Auto) 59.4 (50-75) % Lymph % (Auto) 28.6 (25-40) % [place] % (Auto) 8.1 (3-14) % Eos % (Auto) 3.0 (2-4) % Baso % (Auto) 0.9 (0-2) % Neut # (Auto) 4500 (8810-2982) /uL D-Dimer 678 H (<230) ng/mL Sodium 141 (137-145) mmol/L Potassium 4.9 (3.4-5.1) mmol/L Chloride 101 (98-107) mmol/L Carbon Dioxide 27 (22-32) mmol/L BUN 13 (9-20) mg/dL Creatinine 0.80 (0.66-1.25) mg/dL Estimated GFR > 60.0 (>60) mL/min BUN/Creatinine Ratio 16.3 (6-22) Glucose 107 (80-110) mg/dL Calcium 9.6 (8.4-10.2) mg/dL Total Bilirubin 0.7 (0.2-1.3) mg/dL AST 54 (17-59) IU/L ALT 40 (21-72) IU/L Alkaline Phosphatase 61 (38-126) U/L Total Creatine Kinase 518 H (55-170) U/L CK-MB (CK-2) 15.30 H (<2.37) ng/mL CK-MB (CK-2) Rel Index 3.0 (1.5-5.0) % Troponin I < 0.012 (0.01-0.034) ng/mL Total Protein 7.7 (6.3-8.2) g/dL Albumin 4.6 (3.5-5.0) g/dL Globulin 3.1 (1.7-4.1) g/dL Albumin/Globulin Ratio 1.5 (1.0-2.8) Triglycerides 141 (35-150) mg/dL Cholesterol 191 (140-199) mg/dL LDL Cholesterol, Calc 91 (<100) mg/dL HDL Cholesterol 72 H (40-60) mg/dL Lipase 150 (23-300) U/L 05/03/18 Range/Units 05:52 WBC (4.5-11.0) X10^3/uL RBC (4.5-5.9) X10^6/uL Hgb (13.5-17.5) g/dL Hct (41-53) % MCV (80-100) fL MCH (26-34) PG MCHC (30-36) % RDW (11.6-14.8) % Plt Count (150-400) X10^3/uL Neut % (Auto) (50-75) % Lymph % (Auto) (25-40) % [place] % (Auto) (3-14) % Eos % (Auto) (2-4) % Baso % (Auto) (0-2) % Neut # (Auto) (8877-6308) /uL D-Dimer (<230) ng/mL Sodium 138 (137-145) mmol/L Potassium 3.9 (3.4-5.1) mmol/L Chloride 102 (98-107) mmol/L Carbon Dioxide 26 (22-32) mmol/L BUN 13 (9-20) mg/dL Creatinine 0.80 (0.66-1.25) mg/dL Estimated GFR > 60.0 (>60) mL/min BUN/Creatinine Ratio 16.3 (6-22) Glucose 104 (80-110) mg/dL Calcium 9.0 (8.4-10.2) mg/dL Total Bilirubin (0.2-1.3) mg/dL AST (17-59) IU/L ALT (21-72) IU/L Alkaline Phosphatase (38-126) U/L Total Creatine Kinase 490 H (55-170) U/L CK-MB (CK-2) 10.50 H (<2.37) ng/mL CK-MB (CK-2) Rel Index 2.1 (1.5-5.0) % Troponin I < 0.012 (0.01-0.034) ng/mL Total Protein (6.3-8.2) g/dL Albumin (3.5-5.0) g/dL Globulin (1.7-4.1) g/dL Albumin/Globulin Ratio (1.0-2.8) Triglycerides (35-150) mg/dL Cholesterol (140-199) mg/dL LDL Cholesterol, Calc (<100) mg/dL HDL Cholesterol (40-60) mg/dL Lipase (23-300) U/L Imaging Data Chest x-ray: Radiologist's impression: [address] [address] XRay Report Signed Patient: Elan Borges MR#: [id number] : 1945 Acct:[id number] Age/Sex: 72 / M Date of Service: 05/02/18 Loc: ED Accession Number: [id number] Procedure: XR chest 1V Ordering Provider: Conor Ayala PROCEDURE: XR CHEST 1V INDICATIONS: chest pain TECHNIQUE: One view of the chest was acquired. COMPARISON: [facility], CR, XR CHEST 2V, 11/18/2017, 11:59. FINDINGS: Surgical changes and devices: None. Lungs and pleura: No pleural effusions or pneumothorax. Lungs are clear. Mediastinum: Mediastinal contours appear normal. Heart size is normal. Bones and chest wall: No suspicious bony lesions. Overlying soft tissues appear unremarkable. IMPRESSION: No acute pulmonary process. Dictated by: Jenniffer Cardoso M.D. on 05/02/2018 at 13:04 Approved by: Jenniffer Cardoso M.D. on 05/02/2018 at 13:06 ECG Data Interpretation: EKG shows normal sinus rhythm with no ST elevation or depression. No ectopy. Ventricular rate is 76. Pr interval 160. QRS duration of 96. QTC 389. MDM Narrative Medical decision making narrative: EKG today shows normal sinus rhythm and no ST elevation or depression. No ectopy. Cardiac enzymes show elevated CK and CK -MB with normal CK-MB ratio and normal troponin. Chest x-ray was obtained. D- dimer was obtained and was 678 which is close to age adjusted D-dimer however patient has history of prior PE so elected to have a PE study conducted and was negative for pulmonary embolus. Discussed case with Cardiology Dr. Velazquez who recommended admission for observation and serial enzymes discussed case with Dr. Gomez hospitalist who accepted patient. Patient is admitted to inpatient services <Linda Sam, - Last Filed: 05/05/18 07:22> Lab Data Lab Results 05/02/18 05/02/18 05/02/18 Range/Units 12:25 12:25 12:25 WBC 7.6 (4.5-11.0) X10^3/uL RBC 4.37 L (4.5-5.9) X10^6/uL Hgb 14.7 (13.5-17.5) g/dL Hct 42.2 (41-53) % MCV 96.7 (80-100) fL MCH 33.6 (26-34) PG MCHC 34.7 (30-36) % RDW 12.4 (11.6-14.8) % Plt Count 204 (150-400) X10^3/uL Neut % (Auto) 59.4 (50-75) % Lymph % (Auto) 28.6 (25-40) % [place] % (Auto) 8.1 (3-14) % Eos % (Auto) 3.0 (2-4) % Baso % (Auto) 0.9 (0-2) % Neut # (Auto) 4500 (3147-3582) /uL D-Dimer 678 H (<230) ng/mL Sodium 141 (137-145) mmol/L Potassium 4.9 (3.4-5.1) mmol/L Chloride 101 (98-107) mmol/L Carbon Dioxide 27 (22-32) mmol/L BUN 13 (9-20) mg/dL Creatinine 0.80 (0.66-1.25) mg/dL Estimated GFR > 60.0 (>60) mL/min BUN/Creatinine Ratio 16.3 (6-22) Glucose 107 (80-110) mg/dL Calcium 9.6 (8.4-10.2) mg/dL Total Bilirubin 0.7 (0.2-1.3) mg/dL AST 54 (17-59) IU/L ALT 40 (21-72) IU/L Alkaline Phosphatase 61 (38-126) U/L Total Creatine Kinase 518 H (55-170) U/L CK-MB (CK-2) 15.30 H (<2.37) ng/mL CK-MB (CK-2) Rel Index 3.0 (1.5-5.0) % Troponin I < 0.012 (0.01-0.034) ng/mL Total Protein 7.7 (6.3-8.2) g/dL Albumin 4.6 (3.5-5.0) g/dL Globulin 3.1 (1.7-4.1) g/dL Albumin/Globulin Ratio 1.5 (1.0-2.8) Triglycerides 141 (35-150) mg/dL Cholesterol 191 (140-199) mg/dL LDL Cholesterol, Calc 91 (<100) mg/dL HDL Cholesterol 72 H (40-60) mg/dL Lipase 150 (23-300) U/L 05/03/18 Range/Units 05:52 WBC (4.5-11.0) X10^3/uL RBC (4.5-5.9) X10^6/uL Hgb (13.5-17.5) g/dL Hct (41-53) % MCV (80-100) fL MCH (26-34) PG MCHC (30-36) % RDW (11.6-14.8) % Plt Count (150-400) X10^3/uL Neut % (Auto) (50-75) % Lymph % (Auto) (25-40) % [place] % (Auto) (3-14) % Eos % (Auto) (2-4) % Baso % (Auto) (0-2) % Neut # (Auto) (1699-1531) /uL D-Dimer (<230) ng/mL Sodium 138 (137-145) mmol/L Potassium 3.9 (3.4-5.1) mmol/L Chloride 102 (98-107) mmol/L Carbon Dioxide 26 (22-32) mmol/L BUN 13 (9-20) mg/dL Creatinine 0.80 (0.66-1.25) mg/dL Estimated GFR > 60.0 (>60) mL/min BUN/Creatinine Ratio 16.3 (6-22) Glucose 104 (80-110) mg/dL Calcium 9.0 (8.4-10.2) mg/dL Total Bilirubin (0.2-1.3) mg/dL AST (17-59) IU/L ALT (21-72) IU/L Alkaline Phosphatase (38-126) U/L Total Creatine Kinase 490 H (55-170) U/L CK-MB (CK-2) 10.50 H (<2.37) ng/mL CK-MB (CK-2) Rel Index 2.1 (1.5-5.0) % Troponin I < 0.012 (0.01-0.034) ng/mL Total Protein (6.3-8.2) g/dL Albumin (3.5-5.0) g/dL Globulin (1.7-4.1) g/dL Albumin/Globulin Ratio (1.0-2.8) Triglycerides (35-150) mg/dL Cholesterol (140-199) mg/dL LDL Cholesterol, Calc (<100) mg/dL HDL Cholesterol (40-60) mg/dL Lipase (23-300) U/L Discharge Plan Departure Patient Disposition: Admitted As Inpatient Clinical Impression: Acute pain of left shoulder Discharge Date/Time: 05/02/18 16:44 Interventions: ED Discharge Assessment Last Done: 05/02/18 16:38 Admit Date/Time: 05/02/18 16:09 Admit Provider: Yennifer Mckeon <Linda Sam DO - Last Filed: 05/05/18 07:22> Cosign ED Attending Cosdominickature Attestation: I was immediately available in the department for consultation, case was discussed, labs reviewed and HPI. Plan for observation after consultation with cardiology. This documentation has been reviewed and I agree with assessment and plan. Supervised by Linda Sam, DO
--- NOTE | 2018-05-02 17:31 | PC.NURSE ---
patient up to floor by [id number], tele unit on and active. Heart sounds wnl and rate is regular. Patient demonstrates ability to ambulate safely SBA to BR without use of walker. BA active, yellow socks on. Patient verbalizes understanding about use of call light and not to get oob by himself. Patient urinated without difficulty and also had a small bowel movement after assessment. Lung sounds are clear, bowel tones are present. Skin is intact. Patient denies pain except when he moves left shoulder, then he rates it 6/10. Patient states outright that he does not want anything for the pain at this time. Patient denies nausea, SOB, and dizziness, even while standing. Patient states he has baseline neuropathy in both feet. Alert and oriented. brought medications from home, this RN encouraged to take them back home. Patient saturation is 98% on RA. IV in RAC is saline locked at this time. Will continue to monitor.
[2018-05-02] MEDS: EZETIMIBE 10 MG TABLET PO (17:48)
[2018-05-02] MEDS: LOSARTAN 25 MG TABLET 12.5 MG PO (17:48)
[2018-05-02] MEDS: ATORVASTATIN 20 MG TABLET 80 MG PO (17:48)
--- NOTE | 2018-05-02 18:38 | P.HP_ITS ---
History of Present Illness Date Patient Seen: 05/02/18 Time Patient Seen: 18:22 Chief complaint: THINKS HE IS HAVING ANOTHER HEART ATTACK Narrative: This is a pleasant 72-year-old male with a past medical history significant for CAD. Patient is status post NV in August 2017. Reported the patient had a RCA blockage which required 2 stents being placed. At this time patient is on Plavix, aspirin, metoprolol, statin therapy. He has not had any changes made to his medications. His last echocardiogram was this year in November. It reportedly does not significant changes to prior. Patient comes to the hospital complaining of left shoulder pain. He also reported feeling of being lousy. He reported those are the same feeling was having at the time of his 1st heart attack. This is the reason why came to the hospital He reported that he had some chest pressure with activities. better with rest. He denies any radiation of this incision to his withdrawal. He reported that about 2 weeks ago he did feel like he pulled a muscle in his shoulder. This was after lifting an object. He reported also bowel with acid reflux disease. He is taking Tums and Prilosec at home. he reported some shortness of breath however this was minimal not the same as he felt when he had his prior NV. He denied dyspnea on exertion. He also denies any syncopal or presyncopal episode. No dizziness or drowsiness. No chest palpitation. No feeling of doom. No diaphoresis. No nausea or vomiting. No numbness or tingling to extremities. Patient reported difficulty with bowel movements. Possible constipation. He is feeling almost back to his normal at this point he has no other complaint. Patient History Medical History Abdominal aneurysm (Acute) CAD (coronary artery disease) (Acute) Hyperlipidemia (Acute) Hypertension (Acute) Surgical History History of coronary artery stent placement (Acute) History of lumbar laminectomy (Acute) Family & Social History Social History: household members spouse Prior Living Arrangements House Safety & Behavioral: Feels Safe in Current Yes Environment Been Physically Hurt or No Threatened By a Person Suicidal Ideation Description None Suicide Plan Description No Plan Tobacco & Substance use: Tobacco type cigarettes Smoking Status Former smoker alcohol intake frequency 0-2 drinks per day Substance Use Type does not use Meds Home Medications Medication Instructions Recorded Confirmed Type aspirin 81 mg PO DAILY 05/02/18 05/02/18 History atorvastatin 80 mg PO QPM 05/02/18 05/02/18 History clopidogrel 75 mg PO DAILY 05/02/18 05/02/18 History ezetimibe 10 mg PO QPM 05/02/18 05/02/18 History losartan 12.5 mg PO QPM 05/02/18 05/02/18 History metoprolol tartrate 25 mg PO BID 05/02/18 05/02/18 History nitroglycerin 0.4 mg SUBLINGUAL Q5-15M PRN 05/02/18 05/02/18 History Allergies Allergy/AdvReac Type Severity Reaction Status Date / Time No Known Drug Allergies Allergy Verified 05/02/18 16:12 Review of Systems Review of Systems All systems reviewed & are unremarkable except as noted in HPI and below Exam Vital Signs (past 8 hours): - 05/02/18 12:24 05/02/18 13:08 05/02/18 13:48 Temperature 98.0 F Pulse Rate 77 73 71 Respiratory Rate 17 18 18 Blood Pressure 183/89 H Blood Pressure [Left Arm] 161/84 H 160/78 H Pulse Oximetry 98 99 97 05/02/18 14:00 05/02/18 14:57 05/02/18 15:02 Temperature Pulse Rate 73 70 79 Respiratory Rate 21 15 13 Blood Pressure Blood Pressure [Left Arm] 135/70 136/71 128/65 Pulse Oximetry 99 97 100 05/02/18 15:43 05/02/18 17:06 05/02/18 17:29 Temperature 98.1 F Pulse Rate 74 75 Respiratory Rate 20 18 Blood Pressure 150/89 H Blood Pressure [Left Arm] 126/70 Pulse Oximetry 100 98 98 05/02/18 17:48 Temperature Pulse Rate 75 Respiratory Rate Blood Pressure 150/89 H Blood Pressure [Left Arm] Pulse Oximetry Oxygen Delivery Method Room Air Oxygen Flow Rate 0 Narrative Exam Narrative: NO ACUTE DISTRESS. PATIENT IS ALERT ORIENTED X3. VITAL SIGNS STABLE HEAD ATRAUMATIC NORMOCEPHALIC NECK : SUPPLE WITHOUT ADENOPATHY NO CAROTID BRUITS EYE: EOMI, PERRLA, NORMAL CONJUNCTIVA; NO JAUNDICE CHEST: REGULAR RATE. NO RUBS. PMI IS NON DISPLACED. NO MURMURS; NORMAL S1- S2 PULMONARY: DECREASED BS OVER THE BASES. MILD BIBASILAR CRACKLES NOTED; NO INCREASED DULLNESS TO PERCUSSION ABDOMEN: SOFT. NONTENDER. NONDISTENDED. BOWEL SOUNDS ARE PRESENT IN ALL 4 QUADRANTS. NO MASS. EXTREMITIES: NO EDEMA.. NO CYANOSIS CLUBBING NOTED. NEURO: CRANIAL NERVES 2-12 GROSSLY INTACT. NO FOCAL NEUROLOGICAL DEFICIT NOTED. MSK: NORMAL RANGE OF MOTION FOR AGE. NO JOINT EFFUSION. SKIN: NORMAL FOR ETHNICITY; NO ECCHYMOSIS. NO LESION. GOOD TURGOR.; NO RASHES : NORMAL EXTERNAL GENITALIA. PSYCH : APPROPRIATE MOOD AND AFFECT. ALERT AWAKE ORIENTED X3 Objective Labs Result Diagrams: 05/02/18 12:25 05/02/18 12:25 Labs: Laboratory Results - last 24 hr 05/02/18 05/02/18 05/02/18 12:25 12:25 12:25 WBC 7.6 RBC 4.37 L Hgb 14.7 Hct 42.2 MCV 96.7 MCH 33.6 MCHC 34.7 RDW 12.4 Plt Count 204 Neut % (Auto) 59.4 Lymph % (Auto) 28.6 [place] % (Auto) 8.1 Eos % (Auto) 3.0 Baso % (Auto) 0.9 Neut # (Auto) 4500 D-Dimer 678 H Sodium 141 Potassium 4.9 Chloride 101 Carbon Dioxide 27 BUN 13 Creatinine 0.80 Estimated GFR > 60.0 BUN/Creatinine Ratio 16.3 Glucose 107 Calcium 9.6 Total Bilirubin 0.7 AST 54 ALT 40 Alkaline Phosphatase 61 Total Creatine Kinase 518 H CK-MB (CK-2) 15.30 H CK-MB (CK-2) Rel Index 3.0 Troponin I < 0.012 Total Protein 7.7 Albumin 4.6 Globulin 3.1 Albumin/Globulin Ratio 1.5 Lipase 150 Assessment & Plan Plan: Assessment/Plan Narrative: IMPRESSION AND PLAN CHEST PRESSURE. BECAUSE OF PATIENT'S PRIOR HISTORY. WE NEED TO RULE OUT ACS. PATIENT WILL BE ON ASPIRIN. BETA-LISET WILL BE ORDERED. NITROGLYCERIN WILL BE ORDERED NEEDED. WE WILL ORDER LIPIDS IN THE MORNING. WE WILL CONSIDER ECHOCARDIOGRAM ON THE VENTILATED. STRICT BLOOD PRESSURE CONTROL. PATIENT WILL BE ON TELE AT ALL TIMES; REPEAT EKG IN THE MORNING. ADDITIONAL MEASURES INDICATED CLINICALLY SHOULDER PAIN. I DOUBT THIS IS ASSOCIATED WITH CHEST DISCOMFORT. THIS IS MOST LIKELY DUE TO PRIOR INJURY REPORTED BY PATIENT. NO NEED FOR FURTHER TREATMENT. MONITOR CLOSELY POSSIBLE ACID REFLUX DISEASE. PATIENT WILL BE ON PROTONIX. WILL ADD CARAFATE TO HIS REGIMEN. POSSIBLE CONSTIPATION. PATIENT WILL BE ON MIRALAX. PATIENT ALSO REPLACED ON SENOKOT NIGHTLY. PATIENT WILL BE ENCOURAGED TO STAY WELL HYDRATED. HYPERTENSION PER HISTORY. PATIENT WILL BE RESTARTED ON HIS HOME MEDICATION; WE WILL ADD OTHER AGENTS NEEDED FOR STRICT BLOOD PRESSURE CONTROL INDICATED HYPERLIPIDEMIA. PATIENT WILL BE RESTARTED ON HIS HOME MEDICATION AORTIC ABDOMINAL ANEURYSM. 3 CM REPORTED FOR LAST MEASUREMENT. FOLLOW FOR NOW. ADDITIONAL MANAGEMENT INDICATED CLINICALLY DURATION OF THE STAY SHOULD BE BETWEEN 1-2 DAYS. PATIENT WILL BE IN OBSERVATION STATUS FOR NOW. TIME SPENT 40 MINS
[2018-05-02] MEDS: SENNOSIDES 8.6 MG TABLET 17.2 MG PO (20:22)
[2018-05-02] MEDS: POLYETHYLENE GLYCOL 3350 17 GM POWD.PACK 34 GM PO (20:22)
[2018-05-02] MEDS: METOPROLOL IR 25 MG TABLET PO (20:22)
[2018-05-02 20:37] LABS: Cholesterol 191 mg/dL (140-199); HDL Cholesterol 72 mg/dL (40-60); LDL Cholesterol Calculated 91 mg/dL (<100); Triglycerides 141 mg/dL (35-150)
--- NOTE | 2018-05-03 00:23 | PC.NURSE ---
Addendum entered by Yoselin Gates R.N. 05/03/18 06:37: 0630: LETITIA Acosta reviewed 12 lead EKG. No significant findings. Original Note: Addendum entered by Yoselin Gates R.N. 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 Safety checks done. Pt is a/ox4 and denies pain at this time. Notified LETITIA Alves that there are not repeat labs. Will place order.
[2018-05-03 05:00] VITALS: BP 133/84; PULSE 71; RESP 14; TEMP 36.8; O2SAT 97
[2018-05-03] MEDS: PANTOPRAZOLE 20 MG TABLET PO (05:23)
[2018-05-03 06:32] LABS: BUN Creatinine Ratio 16.3 (6-22); Blood Urea Nitrogen 13 mg/dL (9-20); Carbon Dioxide 26 mmol/L (22-32); Chloride 102 mmol/L (98-107); Creatine Kinase 490 U/L (55-170); Estimated Glomerular Filt Rate > 60.0 mL/min (>60); Glucose 104 mg/dL (80-110); HEMOLYSIS < 15 (0-50); Potassium 3.9 mmol/L (3.4-5.1); Sodium 138 mmol/L (137-145)
[2018-05-03 06:42] LABS: Troponin I < 0.012 ng/mL (0.01-0.034)
[2018-05-03 06:47] LABS: CKMB % Relative Index 2.1 % (1.5-5.0)
[2018-05-03 07:00] VITALS: O2SAT 98
[2018-05-03 07:33] VITALS: BP 142/87; PULSE 73; RESP 16; TEMP 36.4; O2SAT 98
--- NOTE | 2018-05-03 08:51 | P.DS_ITS ---
History of Present Illness Chief complaint: THINKS HE IS HAVING ANOTHER HEART ATTACK Narrative: This is a pleasant 72-year-old male with a past medical history significant for CAD. Patient is status post LA in August 2017. Reported the patient had a RCA blockage which required 2 stents being placed. At this time patient is on Plavix, aspirin, metoprolol, statin therapy. He has not had any changes made to his medications. His last echocardiogram was this year in November. It reportedly does not significant changes to prior. Patient comes to the hospital complaining of left shoulder pain. He also reported feeling of being lousy. He reported those are the same feeling was having at the time of his 1st heart attack. This is the reason why came to the hospital He reported that he had some chest pressure with activities. better with rest. He denies any radiation of this incision to his withdrawal. He reported that about 2 weeks ago he did feel like he pulled a muscle in his shoulder. This was after lifting an object. He reported also bowel with acid reflux disease. He is taking Tums and Prilosec at home. he reported some shortness of breath however this was minimal not the same as he felt when he had his prior LA. He denied dyspnea on exertion. He also denies any syncopal or presyncopal episode. No dizziness or drowsiness. No chest palpitation. No feeling of doom. No diaphoresis. No nausea or vomiting. No numbness or tingling to extremities. Patient reported difficulty with bowel movements. Possible constipation. He is feeling almost back to his normal at this point he has no other complaint. Discharge Providers Date of admission: 05/02/18 16:09 Primary care physician: Cheryl Burgess MD Discharge provider: Yennifer Mckeon DO Discharge Date: 05/03/18 Summary Discharge Diagnosis: ATYPICAL CHEST PRESSURE. NO ACS SUSPECTED. POSSIBLE GERD/ACID REFLUX DISEASE. OUTPATIENT MANAGEMENT. PATIENT DC ON CARAFATE AND PEPCID CAD PER HISTORY. CARDIAC FUNCTION IS STABLE HYPERTENSION PER HISTORY. VITAL SIGNS ARE STABLE HYPERLIPIDEMIA PER HISTORY. PATIENT DISCHARGED WEIGHT CURRENT MEDICATIONS Hospital Course: - VERY PLEASANT 72-YEAR-OLD MALE WITH A PAST MEDICAL HISTORY SIGNIFICANT FOR CAD. PATIENT HAD 2 STENT PLACED IN THE BEGINNING OF THIS YEAR DUE TO LA - PATIENT HAS BEEN IN HIS USUAL STATE OF HEALTH WHEN HE DEVELOPED SOME CHEST PRESSURE AND SOME SHOULDER PAIN. - HE CAME TO THE HOSPITAL FOR FURTHER EVALUATION. HIS LABORATORY DATA HAS REMAINED STABLE WITH NO TROPONIN ELEVATION NOTED. - HIS EKG WAS ALSO UNREMARKABLE FOR ANY ACUTE CHANGES. HOWEVER HIS CK AND CK- MB WERE ELEVATED. - I SUSPECT THIS IS LIKELY RELATED TO STATIN THERAPY. HE IS IN A LARGE DOSE OF STATIN AND I BELIEVE THIS IS CONTRIBUTING TO THE ELEVATED CK AND CK-MB. - AT THIS PARTICULAR PATIENT IN REGARD TO THE FINDINGS. HE WILL FOLLOW UP WITH HIS OUTPATIENT PROVIDERS TO HAVE THIS MEDICATION CHANGED IF POSSIBLE - AN ECHOCARDIOGRAM WILL ALSO BE ORDERED BY PRIMARY CARE. - PATIENT DISCHARGED IN STABLE CONDITION TO HOME Status at Discharge Cognitive/behavioral status at discharge: STABLE TO HOME Functional status at discharge: independent ambulation Overall status at discharge: patient is back to baseline Time Spent with Patient Greater than 30 minutes Exam Vital Signs (past 8 hours): - 05/03/18 05:00 05/03/18 07:33 Temperature 98.3 F 97.6 F Pulse Rate 71 73 Respiratory Rate 14 16 Blood Pressure 133/84 142/87 H Pulse Oximetry 97 98 Oxygen Delivery Method Room Air Oxygen Flow Rate 0 Narrative Exam Narrative: NO ACUTE DISTRESS. PATIENT IS ALERT ORIENTED X3. VITAL SIGNS STABLE HEAD ATRAUMATIC NORMOCEPHALIC NECK : SUPPLE WITHOUT ADENOPATHY NO CAROTID BRUITS EYE: EOMI, PERRLA, NORMAL CONJUNCTIVA; NO JAUNDICE CHEST: REGULAR RATE. NO RUBS. PMI IS NON DISPLACED. NO MURMURS; NORMAL S1- S2 PULMONARY: DECREASED BS OVER THE BASES. MILD BIBASILAR CRACKLES NOTED; NO INCREASED DULLNESS TO PERCUSSION ABDOMEN: SOFT. NONTENDER. NONDISTENDED. BOWEL SOUNDS ARE PRESENT IN ALL 4 QUADRANTS. NO MASS. EXTREMITIES: NO EDEMA.. NO CYANOSIS CLUBBING NOTED. NEURO: CRANIAL NERVES 2-12 GROSSLY INTACT. NO FOCAL NEUROLOGICAL DEFICIT NOTED. MSK: NORMAL RANGE OF MOTION FOR AGE. NO JOINT EFFUSION. SKIN: NORMAL FOR ETHNICITY; NO ECCHYMOSIS. NO LESION. GOOD TURGOR.; NO RASHES : NORMAL EXTERNAL GENITALIA. PSYCH : APPROPRIATE MOOD AND AFFECT. ALERT AWAKE ORIENTED X3 Objective Labs Result Diagrams: 05/02/18 12:25 05/03/18 05:52 Labs: Laboratory Results - last 24 hr 05/02/18 05/02/18 05/02/18 12:25 12:25 12:25 WBC 7.6 RBC 4.37 L Hgb 14.7 Hct 42.2 MCV 96.7 MCH 33.6 MCHC 34.7 RDW 12.4 Plt Count 204 Neut % (Auto) 59.4 Lymph % (Auto) 28.6 [place] % (Auto) 8.1 Eos % (Auto) 3.0 Baso % (Auto) 0.9 Neut # (Auto) 4500 D-Dimer 678 H Sodium 141 Potassium 4.9 Chloride 101 Carbon Dioxide 27 BUN 13 Creatinine 0.80 Estimated GFR > 60.0 BUN/Creatinine Ratio 16.3 Glucose 107 Calcium 9.6 Total Bilirubin 0.7 AST 54 ALT 40 Alkaline Phosphatase 61 Total Creatine Kinase 518 H CK-MB (CK-2) 15.30 H CK-MB (CK-2) Rel Index 3.0 Troponin I < 0.012 Total Protein 7.7 Albumin 4.6 Globulin 3.1 Albumin/Globulin Ratio 1.5 Triglycerides 141 Cholesterol 191 LDL Cholesterol, Calc 91 HDL Cholesterol 72 H Lipase 150 05/03/18 05:52 WBC RBC Hgb Hct MCV MCH MCHC RDW Plt Count Neut % (Auto) Lymph % (Auto) [place] % (Auto) Eos % (Auto) Baso % (Auto) Neut # (Auto) D-Dimer Sodium 138 Potassium 3.9 Chloride 102 Carbon Dioxide 26 BUN 13 Creatinine 0.80 Estimated GFR > 60.0 BUN/Creatinine Ratio 16.3 Glucose 104 Calcium 9.0 Total Bilirubin AST ALT Alkaline Phosphatase Total Creatine Kinase 490 H CK-MB (CK-2) 10.50 H CK-MB (CK-2) Rel Index 2.1 Troponin I < 0.012 Total Protein Albumin Globulin Albumin/Globulin Ratio Triglycerides Cholesterol LDL Cholesterol, Calc HDL Cholesterol Lipase Discharge Plan Discharge Plan Patient Disposition: Home Discharge comment: DC TO HOME [facility] CARDIAC DIET F/U WITH PCP/CARDIO 1-2 WEEKS NO ETOH OR TOBACCO PRODUCTS Discharge Med Rec/Prescriptions Prescriptions: New sucralfate [Carafate] 1 gram tablet 1 gram PO QACHS Qty: 120 RF: 0 famotidine [Pepcid AC] 20 mg tablet 20 mg PO DAILY Qty: 60 RF: 0 Continue atorvastatin 80 mg Tablet 80 mg PO QPM RF: 0 clopidogrel 75 mg Tablet 75 mg PO DAILY RF: 0 aspirin 81 mg Tablet,Delayed Release (Dr/Ec) 81 mg PO DAILY RF: 0 losartan 25 mg Tablet 12.5 mg PO QPM RF: 0 nitroglycerin 0.4 mg Tablet, Sublingual 0.4 mg SUBLINGUAL Q5-15M PRN (Reason: Chest Pain) RF: 0 ezetimibe 10 mg Tablet 10 mg PO QPM RF: 0 metoprolol tartrate 25 mg Tablet 25 mg PO BID RF: 0 Follow up/Referrals: Cheryl Burgess MD [Primary Care Provider] - Provider Discharge Instructions Diet: Low-fat and Low-cholesterol Skin/Wound/Dressing Care Report to your healthcare provider any signs of infection, such as:: chills, fever, night sweats, increased pain, unusual drainage and unusual redness Visit Report/Discharge Packet Instructions: DI for Atypical Chest Pain Visit Report Forms: Stroke Signs & Symptoms Discharge Data Primary Care Provider: Cheryl Burgess Attending Provider: Yennifer Mckeon Admit Date/Time: 05/02/18 16:09
[2018-05-03] MEDS: CLOPIDOGREL 75 MG TABLET PO (09:07)
[2018-05-03] MEDS: METOPROLOL IR 25 MG TABLET PO (09:07)
[2018-05-03] MEDS: POLYETHYLENE GLYCOL 3350 17 GM POWD.PACK PO (09:07)
[2018-05-03] MEDS: ASPIRIN EC 81 MG TABLET PO (09:07)
--- NOTE | 2018-05-03 13:01 | CM.DPC ---
Discharge Planning/Care Management DCP: assessment: case received, EMR reviewed and discussed in 929 Team Rounds. Pt is a 72 year old male who admitted to care of hospitalist team.PCP: Dr. Maura Burgess Payer: [facility]ERI. Dr. Mckeon stated that pt has R/O as [place] and was going to be fine for d/c today. Went to room later to check in. Room clean, pt had left for home with clinic appt planned. CM Discharge Assessment Start: 05/03/18 13:00 Freq: Status: Discharge Protocol: Document 05/03/18 13:01 ITV (Rec: 05/03/18 13:01 ITV [id number]) Discharge Planning Assessment Advance Directives? No Advance Directives on File No History Provided By Patient Medical Record Prior Living Arrangements House Household Members spouse Review Status In Process Next Review Type Continued Stay Review
== END 2018-05-03 10:34 | disposition home or self-care (01) ==
LOC: ED 15:37 → AC 16:09
PROVIDERS: Nurse Practitioner Adult Health; Admitting Provider Hospitalist; Emergency Provider Nurse Practitioner Family; Family Provider Internal Medicine; PCP Internal Medicine; Visit Provider Hospitalist
DX: R07.9 Chest pain, unspecified (principal); I25.2 Old myocardial infarction; Z86.711 Personal history of pulmonary embolism; Z87.891 Personal history of nicotine dependence; I25.10 Atherosclerotic heart disease of native coronary artery without angina pectoris; E78.5 Hyperlipidemia, unspecified; I10 Essential (primary) hypertension; Z79.01 Long term (current) use of anticoagulants
CPT/HCPCS: 36415; 36591; 71045; 71275; 80048; 80053; 80061; 82550; 82553; 83690; 84484; 85025; 85379; 93005; 93041; 94762; 99283; 99285; G0378; Q9967

== ENCOUNTER → 2018-08-26 09:19 | Outpatient (CLI) | payer OTHER, SELFPAY ==
[2018-05-02 16:16] VITALS: BMI 24.4
[2018-08-26 10:36] LABS: Add Manual Diff / Slide Review NO; Basophils Absolute Auto 100 /uL (0-100); Basophils Percent Auto 0.9 % (0-2); Eosinophils Absolute Auto 400 /uL (0-450); Eosinophils Percent Auto 4.4 % (2-4); Hematocrit 41.6 % (41-53); Hemoglobin 14.2 g/dL (13.5-17.5); Lymphocytes Absolute Auto 2400 /uL (1100-4500); Lymphocytes Percent Auto 30.4 % (25-40); Mean Corpuscular HGB Conc 34.2 % (30-36); Mean Corpuscular Hemoglobin 32.4 PG (26-34); Mean Corpuscular Volume 94.8 fL (80-100); Monocytes Absolute Auto 700 /uL (0-900); Monocytes Percent Auto 8.4 % (3-14); Neutrophils Absolute Auto 4400 /uL (1500-7000); Neutrophils Percent Auto 55.9 % (50-75); Platelet Count 237 X10^3/uL (150-400); Red Blood Cell Count 4.39 X10^6/uL (4.5-5.9); Red Cell Distribution Width 12.7 % (11.6-14.8); White Blood Cell Count 7.9 X10^3/uL (4.5-11.0)
[2018-08-26 11:01] LABS: BUN Creatinine Ratio 15.6 (6-22); Blood Urea Nitrogen 14 mg/dL (9-20); Calcium 9.1 mg/dL (8.4-10.2); Carbon Dioxide 27 mmol/L (22-32); Chloride 101 mmol/L (98-107); Cholesterol 168 mg/dL (140-199); Estimated Glomerular Filt Rate > 60.0 mL/min (>60); Glucose 97 mg/dL (80-110); HDL Cholesterol 57 mg/dL (40-60); HEMOLYSIS < 15 (0-50); LDL Cholesterol Calculated 88 mg/dL (<100); Potassium 4.6 mmol/L (3.4-5.1); Sodium 137 mmol/L (137-145); Triglycerides 116 mg/dL (35-150)
== END ==
PROVIDERS: Family Provider Internal Medicine; PCP Internal Medicine; Visit Provider Internal Medicine Cardiovascular Disease
DX: I10 Essential (primary) hypertension (principal)
CPT/HCPCS: 36415; 80048; 80061; 85025

== ENCOUNTER → 2019-04-06 11:24 | Outpatient (CLI) | payer OTHER, SELFPAY ==
[2018-05-02 16:16] VITALS: BMI 24.4
--- NOTE | 2019-04-06 | DI.US.S_ITS ---
PROCEDURE: US CAROTID DOPPLER BI INDICATIONS: CAROTID STENOSIS TECHNIQUE: Color and pulse Doppler interrogation was performed of both carotid systems, with image documentation and velocity measurements. COMPARISON: [facility], , US CAROTID DOPPLER BI, 02/05/2018, 11:08. FINDINGS: Stenosis calculations are based on SRU (Society of Radiologists in Ultrasound) criteria. Right side: Brachial blood pressure: 133/85 mm Hg. Common carotid artery peak systolic velocity: 86 cm/sec. Internal carotid artery peak systolic velocity: 125 cm/sec. Internal carotid artery end diastolic velocity: 14 cm/sec. External carotid artery peak systolic velocity: 372 cm/sec. ICA/CCA peak systolic ratio: 1.5. Goodson scale imaging description: Mild soft plaque Percent internal carotid artery stenosis: 50-60% stenosis. Vertebral artery: Flow direction is antegrade. Left side: Brachial blood pressure: 142/82 mm Hg. Common carotid artery peak systolic velocity: 1 or 1 cm/sec. Internal carotid artery peak systolic velocity: 176 cm/sec. Internal carotid artery end diastolic velocity: 48 cm/sec. External carotid artery peak systolic velocity: 119 cm/sec. ICA/CCA peak systolic ratio: 1.7. Goodson scale imaging description: Mild to moderate soft plaque Percent internal carotid artery stenosis: 50-60% stenosis at the proximal internal carotid artery.. Vertebral artery: Flow direction is antegrade. IMPRESSION: 50-60% stenosis is noted within the proximal internal carotid arteries bilaterally. This appears slightly worsened on the right and without statistically significant change on the left. Dictated by: Daev Durham M.D. on 04/06/2019 at 13:11 Approved by: Dave Durham M.D. on 04/06/2019 at 13:14
== END ==
PROVIDERS: PCP Internal Medicine Geriatric Medicine; Visit Provider Internal Medicine Cardiovascular Disease
DX: I65.23 Occlusion and stenosis of bilateral carotid arteries (principal)
CPT/HCPCS: 93880

== ENCOUNTER → 2019-04-16 09:13 | Outpatient (CLI) | payer OTHER, SELFPAY ==
[2018-05-02 16:16] VITALS: BMI 24.4
[2019-04-16 10:24] LABS: Add Manual Diff / Slide Review NO; Basophils Absolute Auto 100 /uL (0-100); Basophils Percent Auto 0.8 % (0-2); Eosinophils Absolute Auto 500 /uL (0-450); Eosinophils Percent Auto 6.1 % (2-4); Hematocrit 41.8 % (41-53); Hemoglobin 14.2 g/dL (13.5-17.5); Lymphocytes Absolute Auto 2400 /uL (1100-4500); Lymphocytes Percent Auto 32.4 % (25-40); Mean Corpuscular Hemoglobin 32.1 PG (26-34); Mean Corpuscular Volume 94.4 fL (80-100); Monocytes Absolute Auto 700 /uL (0-900); Neutrophils Absolute Auto 3800 /uL (1500-7000); Neutrophils Percent Auto 50.7 % (50-75); Platelet Count 217 X10^3/uL (150-400); Red Blood Cell Count 4.43 X10^6/uL (4.5-5.9); Red Cell Distribution Width 13.1 % (11.6-14.8); White Blood Cell Count 7.5 X10^3/uL (4.5-11.0)
[2019-04-16 11:01] LABS: Alanine Aminotransferase 31 IU/L (<50); Albumin 4.3 g/dL (3.5-5.0); Albumin Globulin Ratio 1.4 (1.0-2.8); Alkaline Phosphatase 52 U/L (38-126); Aspartate Aminotransferase 42 IU/L (17-59); BUN Creatinine Ratio 18.9 (6-22); Bilirubin Total 0.7 mg/dL (0.2-1.3); Blood Urea Nitrogen 17 mg/dL (9-20); Calcium 9.3 mg/dL (8.4-10.2); Carbon Dioxide 28 mmol/L (22-32); Chloride 101 mmol/L (98-107); Cholesterol 173 mg/dL (140-199); Estimated Glomerular Filt Rate > 60.0 mL/min (>60); Glucose 96 mg/dL (80-110); HDL Cholesterol 64 mg/dL (40-60); HEMOLYSIS < 15 (0-50); LDL Cholesterol Calculated 93 mg/dL (<100); Potassium 4.6 mmol/L (3.4-5.1); Sodium 137 mmol/L (137-145); Total Protein 7.3 g/dL (6.3-8.2); Triglycerides 81 mg/dL (35-150)
== END ==
PROVIDERS: PCP Internal Medicine Geriatric Medicine; Visit Provider Internal Medicine Cardiovascular Disease
DX: I10 Essential (primary) hypertension (principal); E78.5 Hyperlipidemia, unspecified
CPT/HCPCS: 36415; 80053; 80061; 85025

== ENCOUNTER → 2020-04-07 09:52 | Outpatient (CLI) | payer OTHER, SELFPAY ==
[2018-05-02 16:16] VITALS: BMI 24.4
[2020-04-07 11:10] LABS: Add Manual Diff / Slide Review NO; Basophils Absolute Auto 100 /uL (0-100); Basophils Percent Auto 0.9 % (0-2); Eosinophils Absolute Auto 400 /uL (0-450); Eosinophils Percent Auto 5.3 % (2-4); Hematocrit 41.7 % (41-53); Hemoglobin 13.8 g/dL (13.5-17.5); Lymphocytes Absolute Auto 2300 /uL (1100-4500); Lymphocytes Percent Auto 32.3 % (25-40); Mean Corpuscular HGB Conc 33.2 % (30-36); Mean Corpuscular Hemoglobin 32.1 PG (26-34); Mean Corpuscular Volume 96.6 fL (80-100); Monocytes Absolute Auto 700 /uL (0-900); Monocytes Percent Auto 9.3 % (3-14); Neutrophils Absolute Auto 3700 /uL (1500-7000); Neutrophils Percent Auto 52.2 % (50-75); Platelet Count 210 X10^3/uL (150-400); Red Blood Cell Count 4.31 X10^6/uL (4.5-5.9); Red Cell Distribution Width 12.6 % (11.6-14.8); White Blood Cell Count 7.1 X10^3/uL (4.5-11.0)
[2020-04-07 11:27] LABS: BUN Creatinine Ratio 19.5 (6-22); Blood Urea Nitrogen 16 mg/dL (9-20); Calcium 8.9 mg/dL (8.4-10.2); Carbon Dioxide 26 mmol/L (22-32); Chloride 104 mmol/L (98-107); Cholesterol 176 mg/dL (140-199); Estimated Glomerular Filt Rate > 60.0 mL/min (>60); Glucose 103 mg/dL (80-110); HDL Cholesterol 69 mg/dL (40-60); HEMOLYSIS < 15 (0-50); LDL Cholesterol Calculated 84 mg/dL (<100); Sodium 136 mmol/L (137-145); Triglycerides 113 mg/dL (35-150)
== END ==
PROVIDERS: PCP Internal Medicine Geriatric Medicine; Referring Provider Internal Medicine Cardiovascular Disease; Visit Provider Internal Medicine Cardiovascular Disease
DX: E78.5 Hyperlipidemia, unspecified (principal); I25.10 Atherosclerotic heart disease of native coronary artery without angina pectoris
CPT/HCPCS: 36415; 80048; 80061; 85025

== ENCOUNTER → 2021-05-11 10:17 | Outpatient (CLI) | payer OTHER, SELFPAY ==
[2018-05-02 16:16] VITALS: BMI 24.4
[2021-05-11 11:57] LABS: Add Manual Diff / Slide Review NO; Basophils Absolute Auto 100 /uL (0-100); Basophils Percent Auto 0.9 % (0-2); Eosinophils Absolute Auto 400 /uL (0-450); Hematocrit 41.3 % (41-53); Hemoglobin 13.9 g/dL (13.5-17.5); Lymphocytes Absolute Auto 2700 /uL (1100-4500); Lymphocytes Percent Auto 35.6 % (25-40); Mean Corpuscular HGB Conc 33.8 % (30-36); Mean Corpuscular Hemoglobin 32.1 PG (26-34); Mean Corpuscular Volume 95.1 fL (80-100); Monocytes Absolute Auto 700 /uL (0-900); Monocytes Percent Auto 9.7 % (3-14); Neutrophils Absolute Auto 3700 /uL (1500-7000); Neutrophils Percent Auto 48.8 % (50-75); Platelet Count 214 X10^3/uL (150-400); Red Blood Cell Count 4.34 X10^6/uL (4.5-5.9); Red Cell Distribution Width 12.9 % (11.6-14.8); White Blood Cell Count 7.5 X10^3/uL (4.5-11.0)
[2021-05-11 13:33] LABS: BUN Creatinine Ratio 13.7 (6-22); Blood Urea Nitrogen 13 mg/dL (9-20); Calcium 9.3 mg/dL (8.4-10.2); Carbon Dioxide 27 mmol/L (22-32); Chloride 104 mmol/L (98-107); Cholesterol 178 mg/dL (140-199); Estimated Glomerular Filt Rate > 60.0 mL/min (>60); Glucose 98 mg/dL (80-110); HDL Cholesterol 78 mg/dL (40-60); HEMOLYSIS < 15 (0-50); LDL Cholesterol Calculated 80 mg/dL (<100); Potassium 4.3 mmol/L (3.4-5.1); Sodium 138 mmol/L (137-145); Triglycerides 98 mg/dL (35-150)
== END ==
PROVIDERS: PCP Internal Medicine Geriatric Medicine; Referring Provider Internal Medicine Cardiovascular Disease; Visit Provider Internal Medicine Cardiovascular Disease
DX: E78.5 Hyperlipidemia, unspecified (principal); I25.10 Atherosclerotic heart disease of native coronary artery without angina pectoris
CPT/HCPCS: 36415; 80048; 80061; 85025

== ENCOUNTER → 2021-05-24 09:12 | Outpatient (CLI) | payer OTHER, SELFPAY ==
[2018-05-02 16:16] VITALS: BMI 24.4
--- NOTE | 2021-05-24 | DI.US.S_ITS ---
PROCEDURE: US RETRO PERITONEAL LIMITED INDICATIONS: AAA WITHOUT RUPTURE,ARTERY STENOSIS TECHNIQUE: Real time scanning was performed of the aorta and iliac arteries, with image documentation. COMPARISON: [facility], , RETRO PERITONEAL LIMITED, 02/05/2018, 11:24. FINDINGS: Aorta: Proximal aorta is not well seen due to bowel gas. Mid-aorta measures 2.6 cm, previously 1.8 cm. Distal aortic contains in the aneurysm 9 cm in length, 4.7 cm in AP diameter, and 5.3 cm in width. It previously measured 7.4 cm in length by 3.3 cm in AP diameter x 4.3 cm in width. There is noncalcified mural thrombus along the anterior portion of the aneurysm for its entire length. Iliac arteries: Right common iliac artery measures 1.4 cm. Left common iliac artery measures 1.5 cm. IMPRESSION: 1. Increased size of partially thrombosed distal abdominal aortic aneurysm, now measuring 4.7 cm in AP diameter. 2. Six-month follow-up ultrasound for surveillance, and/or vascular or endovascular surgery consultation is recommended. Dictated by: Marci Ndiaye M.D. on 05/24/2021 at 11:45 Approved by: Marci Ndiaye M.D. on 05/24/2021 at 11:51
--- NOTE | 2021-05-24 | DI.US.S_ITS ---
PROCEDURE: US CAROTID DOPPLER BI INDICATIONS: AAA WITHOUT RUPTURE,ARTERY STENOSIS TECHNIQUE: Color and pulse Doppler interrogation was performed of both carotid systems, with image documentation and velocity measurements. COMPARISON: [facility], US, US CAROTID BILATERAL, 04/06/2020, 16:03. [facility], US, US RETRO PERITONEAL LIMITED, 05/24/2021, 9:23. [facility], US, US CAROTID DOPPLER BI, 02/05/2018, 11:08. FINDINGS: Stenosis calculations are based on SRU (Society of Radiologists in Ultrasound) criteria. Right side: Brachial blood pressure: 140/77 mm Hg. Common carotid artery peak systolic velocity: 72 cm/sec (prior 58 cm/s). Internal carotid artery peak systolic velocity: 82 cm/sec (prior 105 cm/s). Internal carotid artery end diastolic velocity: 23 cm/sec (prior 23 cm/s). External carotid artery peak systolic velocity: 247 cm/sec (prior 332 cm/s). ICA/CCA peak systolic ratio: 1.2 (prior 1.8). Goodson scale imaging description: Moderate atherosclerotic change can be seen. Percent internal carotid artery stenosis: Less than 50% by velocity criteria. Vertebral artery: Flow direction is antegrade. Left side: Brachial blood pressure: 149/84 mm Hg. Common carotid artery peak systolic velocity: 95 cm/sec (prior 77 cm/s). Internal carotid artery peak systolic velocity: 164 cm/sec (prior 143 cm/s). Internal carotid artery end diastolic velocity: 34 cm/sec (prior 24 cm/s). External carotid artery peak systolic velocity: 125 cm/sec (prior 131 cm/s). ICA/CCA peak systolic ratio: 1.7 (prior 1.9). Goodson scale imaging description: Moderate atherosclerotic change can be seen on the left. Percent internal carotid artery stenosis: Less than 50% by velocity criteria. Vertebral artery: Flow direction is antegrade. IMPRESSION: By velocity criteria, there is a stable moderate stenosis (between 50 and 69% stenosis) within the LEFT proximal internal carotid artery. The true degree of stenosis is felt most likely to be at the lower end of this range. There is again seen a greater than 50% stenosis involving the RIGHT external carotid artery. Dictated by: Vaughn Velez M.D. on 05/24/2021 at 9:42 Approved by: Beatriz NagelD. on 05/24/2021 at 9:45
== END ==
PROVIDERS: PCP Internal Medicine Geriatric Medicine; Referring Provider Internal Medicine Cardiovascular Disease; Visit Provider Internal Medicine Cardiovascular Disease
DX: I71.4 Abdominal aortic aneurysm, without rupture (principal); I65.23 Occlusion and stenosis of bilateral carotid arteries
CPT/HCPCS: 76775; 93880

== ENCOUNTER → 2022-01-22 10:53 | Outpatient (CLI) | payer OTHER, SELFPAY ==
[2018-05-02 16:16] VITALS: BMI 24.4
--- NOTE | 2022-01-22 | DI.US.S_ITS ---
PROCEDURE: US RETRO PERITONEAL LIMITED INDICATIONS: F/U AAA TECHNIQUE: Real time scanning was performed of the aorta and iliac arteries, with image documentation. COMPARISON: [facility], , RETRO PERITONEAL LIMITED, 05/24/2021, 9:23. FINDINGS: Aorta: Proximal aortic diameter measures 2.2 cm. Mid-aorta measures 1.9 cm. Distal aortic diameter is 5.6 cm. Iliac arteries: Right common iliac artery measures 1.2 cm. Left common iliac artery measures 1.0 cm. IMPRESSION: Slight increase in size of distal abdominal aortic aneurysm. Dictated by: Pretty Martinez M.D. on 01/22/2022 at 14:01 Transcribed by: CLARA on 01/22/2022 at 14:06 Approved by: Pretty Martinez M.D. on 01/22/2022 at 16:30
[2022-01-22 13:15] LABS: Add Manual Diff / Slide Review NO; Basophils Absolute Auto 100 /uL (0-100); Basophils Percent Auto 1.1 % (0-2); Eosinophils Absolute Auto 400 /uL (0-450); Eosinophils Percent Auto 5.9 % (2-4); Hematocrit 39.7 % (41-53); Hemoglobin 13.6 g/dL (13.5-17.5); Lymphocytes Absolute Auto 2200 /uL (1100-4500); Lymphocytes Percent Auto 29.1 % (25-40); Mean Corpuscular HGB Conc 34.3 % (30-36); Mean Corpuscular Hemoglobin 32.7 PG (26-34); Mean Corpuscular Volume 95.2 fL (80-100); Monocytes Absolute Auto 600 /uL (0-900); Monocytes Percent Auto 8.4 % (3-14); Neutrophils Absolute Auto 4200 /uL (1500-7000); Neutrophils Percent Auto 55.5 % (50-75); Platelet Count 208 X10^3/uL (150-400); Red Blood Cell Count 4.17 X10^6/uL (4.5-5.9); Red Cell Distribution Width 12.9 % (11.6-14.8); White Blood Cell Count 7.5 X10^3/uL (4.5-11.0)
[2022-01-22 13:39] LABS: BUN Creatinine Ratio 15.2 (6-22); Blood Urea Nitrogen 12 mg/dL (9-20); Calcium 8.9 mg/dL (8.4-10.2); Carbon Dioxide 23 mmol/L (22-32); Chloride 102 mmol/L (98-107); Cholesterol 162 mg/dL (140-199); Estimated Glomerular Filt Rate > 60 mL/min (>60); Glucose 80 mg/dL (80-110); HDL Cholesterol 63 mg/dL (40-60); HEMOLYSIS < 15 (0-50); LDL Cholesterol Calculated 80 mg/dL (<100); Potassium 4.7 mmol/L (3.4-5.1); Sodium 134 mmol/L (137-145); Triglycerides 97 mg/dL (35-150)
== END ==
PROVIDERS: PCP Internal Medicine Geriatric Medicine; Referring Provider Internal Medicine Cardiovascular Disease; Visit Provider Internal Medicine Cardiovascular Disease
DX: E78.5 Hyperlipidemia, unspecified (principal); I71.4 Abdominal aortic aneurysm, without rupture; I25.10 Atherosclerotic heart disease of native coronary artery without angina pectoris
CPT/HCPCS: 36415; 76775; 80048; 80061; 85025

== ENCOUNTER → 2022-09-06 09:07 | Outpatient (CLI) | payer OTHER, SELFPAY ==
[2018-05-02 16:16] VITALS: BMI 24.4
[2022-09-06 10:27] LABS: Add Manual Diff / Slide Review NO; Basophils Absolute Auto 100 /uL (0-100); Basophils Percent Auto 1.7 % (0-2); Eosinophils Absolute Auto 400 /uL (0-450); Eosinophils Percent Auto 7.1 % (2-4); Hematocrit 39.7 % (41-53); Hemoglobin 13.6 g/dL (13.5-17.5); Lymphocytes Absolute Auto 2000 /uL (1100-4500); Lymphocytes Percent Auto 33.7 % (25-40); Mean Corpuscular HGB Conc 34.2 % (30-36); Mean Corpuscular Hemoglobin 32.6 PG (26-34); Mean Corpuscular Volume 95.5 fL (80-100); Monocytes Absolute Auto 600 /uL (0-900); Neutrophils Absolute Auto 2700 /uL (1500-7000); Neutrophils Percent Auto 46.5 % (50-75); Platelet Count 193 X10^3/uL (150-400); Red Blood Cell Count 4.15 X10^6/uL (4.5-5.9); Red Cell Distribution Width 12.9 % (11.6-14.8); White Blood Cell Count 5.9 X10^3/uL (4.5-11.0)
[2022-09-06 10:50] LABS: Blood Urea Nitrogen 11 mg/dL (9-20); Calcium 9.3 mg/dL (8.4-10.2); Carbon Dioxide 24 mmol/L (22-32); Chloride 101 mmol/L (98-107); Cholesterol 149 mg/dL (140-199); Estimated Glomerular Filt Rate > 60 mL/min (>60); Glucose 88 mg/dL (80-110); HDL Cholesterol 77 mg/dL (40-60); HEMOLYSIS < 15 (0-50); LDL Cholesterol Calculated 53 mg/dL (<100); Sodium 136 mmol/L (137-145); Triglycerides 97 mg/dL (35-150)
== END ==
PROVIDERS: PCP Internal Medicine Geriatric Medicine; Referring Provider Internal Medicine Cardiovascular Disease; Visit Provider Internal Medicine Cardiovascular Disease
DX: I10 Essential (primary) hypertension (principal); I25.10 Atherosclerotic heart disease of native coronary artery without angina pectoris
CPT/HCPCS: 36415; 80048; 80061; 85025

== ENCOUNTER → 2022-10-10 12:00 | Outpatient (CLI) | payer OTHER, SELFPAY ==
[2018-05-02 16:16] VITALS: BMI 24.4
--- NOTE | 2022-10-10 | DI.ECHO.S_ITS ---
[place]---------+ [facility] +---------+ : : [address] : [address] [place] : : : : [id number] : : : : Phone: [phone]---------+ Echocardiogram Report + + :Name: DEMETRIO JARQUIN Study Date: 10/10/2022 Height: 69 in : :[facility] ReadingLocation: Weight: 165 lb : : Gender: Male BSA: 1.9 m2 : :: 1945 Age: 76 yrs BP: 133/83 mmHg: :Reason For Study: ATHEROSCLEROTIC HEART DISEASE : :Ordering Physician: MACO, : :ARISTEO Performed By: Adilia Garner : :Referring: BRANT BRYAN : + + Interpretation Summary 1) Normal left ventricular thickness, size, wall motion, and systolic function (EF 60-65%). 2) Normal right ventricular size and function. 3) There is mild mitral regurgitation. 4) Compared to the Echo done 10/25/2017, mitral regurgitation has decreased from mild-moderate to mild on this study. Procedure: A two-dimensional transthoracic echocardiogram with color flow and Doppler was performed. The study quality was technically adequate. Comparison is made with the echocardiogram of 10/25/2017. The patient was in sinus rhythm with heart rates between 67-75 bpm during the exam. Left Ventricle: The left ventricle is normal in size and wall thickness. The ejection fraction is estimated to be 60-65%. Left ventricular systolic function appears normal without focal wall motion abnormalities. Diastolic parameters suggest probable normal left ventricular diastolic function and normal filling pressures. Right Ventricle: The right ventricle is normal in size and function. Atria: The left atrial size is normal. Right atrial size is normal. There is no Doppler evidence for an interatrial shunt. Mitral Valve: There is mild mitral annular calcification. The mitral valve leaflets appear borderline thickened, but open well. There is mild mitral regurgitation. Aortic Valve: The aortic valve is not well visualized. The aortic valve is moderately calcified. There is no aortic valve stenosis. No aortic regurgitation is present. Tricuspid Valve: The tricuspid valve is normal in structure and function. There is mild tricuspid regurgitation. The right ventricular systolic pressure is estimated to be at least 27 mmHg based on an estimated right atrial pressure of 3 mm Hg. Pulmonic Valve: The pulmonic valve is not well visualized. There is a trace or physiologic amount of pulmonic regurgitation. Great Vessels: The aortic root is normal size. The ascending aorta could not be visualized. The IVC is of normal diameter and collapses greater than 50% with a sniff. This suggests a low right atrial pressure of 3 mm Hg. Pericardium/ Pleura There is no pericardial effusion. There is no pleural effusion. MMode/2D Measurements & Calculations LVIDd: 4.5 cm LVOT diam: 2.2 cm LVIDs: 2.7 cm Ao root diam: 3.7 cm FS: 39.2 % EPSS: 0.79 cm IVSd: 0.69 cm LVPWd: 0.79 cm LV carbajal. diameter/BSA (cm/m^2): 2.4 LV sys. diameter/BSA (cm/m^2): 1.4 LA A2 area: 15.6 cm2 RA long axis: 3.9 cm LA A4 area: 12.3 cm2 RA area: 12.5 cm2 LA length (vol): 4.3 cm RA vol: 33.7 ml LA vol: 38.1 ml RA : 17.7 ml/m2 LA vol index: 20.0 ml/m2 IVC diam: 1.1 cm RVD1 (basal): 3.9 cm TAPSE: 2.5 cm Doppler Measurements & Calculations Ao V2 max: 142.2 cm/sec LVOT Max Blair: 98.3 cm/sec Ao V2 mean: 92.8 cm/sec LV V1 max P.9 mmHg Ao max P.9 mmHg LV V1 VTI: 19.9 cm Ao mean P.2 mmHg ALISON(I,D): 2.7 cm2 Ao V2 VTI: 28.5 cm ALISON(V,D): 2.6 cm2 sev ratio: 0.70 ALISON indexed to BSA (cm^2/m^2): 1.4 MV E max blair: 72.0 cm/sec TR max blair: 248.4 cm/sec MV A max blair: 55.0 cm/sec TR max P.7 mmHg MV E/A: 1.3 PA V2 max: 60.5 cm/sec Med Peak E' Blair: 7.8 cm/sec PA V2 mean: 39.3 cm/sec E/E' med: 9.2 PA mean P.72 mmHg Lat Peak E' Blair: 7.8 cm/sec PA pr(Accel): 24.2 mmHg E/E' lat: 9.2 E/e' average: 9.2 MV dec time: 0.19 sec SV(LVOT): 76.3 ml Reading Physician:08:59 AM
== END ==
PROVIDERS: PCP Internal Medicine Geriatric Medicine; Referring Provider Internal Medicine Cardiovascular Disease; Visit Provider Internal Medicine Cardiovascular Disease
DX: I25.10 Atherosclerotic heart disease of native coronary artery without angina pectoris (principal); Z95.5 Presence of coronary angioplasty implant and graft; I08.1 Rheumatic disorders of both mitral and tricuspid valves
CPT/HCPCS: 93306

== ENCOUNTER → 2022-10-23 11:22 | Outpatient (CLI) | payer OTHER, SELFPAY ==
[2018-05-02 16:16] VITALS: BMI 24.4
--- NOTE | 2022-10-23 | DI.CT.S_ITS ---
PROCEDURE: CT ANGIO CHEST ABDOMEN PELVIS INDICATIONS: Infrarenal abdominal aortic aneurysm, without rupture TECHNIQUE: Precontrast 5 mm thick sections acquired from the lung apices to the iliac crests. After the administration of intravenous contrast, 2.5 mm thick sections again acquired from the lung apices to the iliac crests. Maximum intensity projection (MIP) oblique sagittal and coronal reformats were then acquired. For radiation dose reduction, the following was used: automated exposure control. COMPARISON: None. FINDINGS: Image quality: Excellent. AORTA: Bilobed infrarenal fusiform aneurysm, max diameter 5.6 x 5.3 centimeter. No evidence of acute aortic syndrome. 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 CHEST: Lungs and pleura: No acute airspace opacities. No pleural effusions or pneumothorax. Central and peripheral airways are patent and normal in caliber. Moderate centrilobular emphysema. Bronchial thickening. 2 millimeter solid nodule in the right lung base (series 5, image 297). Additional pulmonary micro nodules are present. Mediastinum: Heart size is enlarged. No pericardial effusion. No mediastinal or hilar adenopathy by size criteria. Central pulmonary arteries are normal in size. Short segment of web-like filling defect of web-like filling defect in a segmental right lower lobe pulmonary artery (series 4, image 100). Esophagus is normal in caliber. No hiatal hernias. Three-vessel coronary calcifications. Bones and chest wall: No axillary adenopathy by size criteria. Thyroid gland is unremarkable . No suspicious bony lesions. No vertebral body compression fractures. ABDOMEN: Vasculature: Celiac trunk and mesenteric arteries are patent. Renal arteries are also patent. Solid organs: Liver is normal in size and enhancement. Gallbladder is unremarkable . Biliary system is non dilated. Pancreas enhances normally. Spleen is normal in size and enhancement. No adrenal nodules, but there is mild nodularity of the right adrenal gland. Both kidneys are normal in size and enhancement, without hydronephrosis. Peritoneum and bowel: No free fluid or air. Bowel loops are normal in caliber and wall thickness. Nodes and vessels: No retroperitoneal or mesenteric adenopathy by size criteria. Inferior vena cava is normal in morphology. Miscellaneous: No ventral hernias. PELVIS: Genitourinary: Bladder wall thickness is normal. Miscellaneous: Bilateral inguinal hernias containing fat, moderate on the left and small on the right. Bones: No suspicious bony lesions. No vertebral body compression fractures. IMPRESSION: Infrarenal aortic aneurysm measuring 5.6 x 5.3 centimeter. Recommend vascular surgery referral, if not performed in the past. Web-like filling defect within a segmental right lower lobe pulmonary artery, favoring a chronic pulmonary embolus. A few solid pulmonary nodules. Consider 12 month follow-up per Fleischner society guidelines. Dictated by: Conor Erickson M.D. on 10/23/2022 at 14:19 Approved by: Conor Erickson M.D. on 10/23/2022 at 14:31
[2022-10-23 11:50] LABS: Estimated Glomerular Filt Rate > 60 mL/min (>60)
== END ==
PROVIDERS: Specialist; PCP Internal Medicine Geriatric Medicine; Referring Provider Surgery Vascular Surgery; Visit Provider Surgery Vascular Surgery
DX: I71.43 Infrarenal abdominal aortic aneurysm, without rupture (principal); R91.8 Other nonspecific abnormal finding of lung field; J43.2 Centrilobular emphysema; I51.7 Cardiomegaly
CPT/HCPCS: 36415; 71275; 74174; 82565; Q9967